=== PATIENT | male | born 1960 | race Caucasian/White ===

== ENCOUNTER → 2021-01-13 | Outpatient (CLI) | payer MEDICARE, MEDICAID ==
[~2021-01-13] MED LIST: BARIUM SUSPENSION 2.1% (VANILLA SILQ) 450 ML PO ONE; CATHETER FLUSH 10 ML SYR IV PRN; HOLD METFORMIN - RECEIVED CONTRAST 20 ML VIAL IV SCH; IOHEXOL 350 MG/ML 100 ML (OMNIPAQUE 350) VIAL IV ONE; NS 100 ML (IVPB) BAG IV ONE
--- NOTE | 2021-01-13 11:32 | Diagnostic Imaging Report ---
PROCEDURE: CT chest with contrast, CT abdomen and pelvis with and without contrast. TECHNIQUE: Pre and post intravenous contrast axial imaging of the abdomen and pelvis and post contrast axial imaging of the chest were performed. Auto Exposure Controls were utilized during the CT exam to meet ALARA standards for radiation dose reduction. INDICATION: Colon cancer. Recent colon surgery. No prior studies are available for comparison. CT CHEST: The lungs are clear. There is no effusion or pneumothorax. There is a 14 x 19 mm right paratracheal lymph node present which has a predominant fatty hilum with no suspicious mediastinal, hilar or axillary lymphadenopathy seen. No bony lesions are seen. CT abdomen and pelvis: Liver, gallbladder and bile ducts are normal. The spleen, pancreas and adrenals are normal. There is a 4 x 7 mm nonobstructing calculus in the right kidney. Left kidney is normal. The ureters and bladder are normal. There is diverticulosis of the colon. There is some induration around the cecum and ascending colon which may be related to the recent surgery. A focal mass is not seen. No obstruction or perforation is evident. There is no mesenteric or retroperitoneal adenopathy. There is no ascites. No suspicious bony lesions. IMPRESSION: CT of the chest, abdomen and pelvis shows no evidence of metastatic disease. Dictated by: Dictated on workstation # [id number]
== END ==
LOC: RAD 08:27
PROVIDERS: ATTEND Internal Medicine Hematology & Oncology
DX: C18.9 Malignant neoplasm of colon, unspecified (principal)
CPT/HCPCS: 71260; 74178

== ENCOUNTER 2021-02-01 05:48 | Outpatient (CLI) | payer MEDICARE, MEDICAID ==
[~2021-02-01] VITALS: Ht 170.2 cm; Wt 155.6 kg
[2021-02-01] MEDS ORDERED: NFCAPE500T PO ×2 (09:54)
[2021-02-01] MEDS ORDERED: SUCR1TAB PO ×2 (09:54)
[2021-02-01] MEDS ORDERED: ATOR40TA70 PO ×2 (09:54)
[2021-02-01] MEDS ORDERED: HYDR25TA4 PO ×2 (09:54)
[2021-02-01] MEDS ORDERED: LISI40TA9 PO ×2 (09:54)
[2021-02-01] MEDS ORDERED: RT-ALBUINH IH ×2 (09:54)
[2021-02-01] MEDS ORDERED: PANT40TA52 PO ×2 (09:54)
[2021-02-01] MEDS ORDERED: VENL150C98 PO ×2 (09:54)
[2021-02-01] MEDS ORDERED: IPRA3AMP31 IH ×2 (09:54)
[2021-02-01] MEDS ORDERED: LEVO25CA4 PO ×2 (09:54)
[2021-02-02] MEDS ORDERED: ACHYD1T PO ×2 (10:23)
== END 2021-02-01 10:09 | disposition home or self-care (01) ==
LOC: PREOP 05:48
PROVIDERS: ATTEND Surgery
DX: Z01.818 Encounter for other preprocedural examination (principal)

== ENCOUNTER 2021-02-02 07:28 | Day surgery (SDC) | payer MEDICARE, MEDICAID ==
[2021-02-02] VITALS (7 sets, daily range): BP systolic 118–140; BP diastolic 60–68
[~2021-02-02] VITALS: Ht 170.2 cm; Wt 155.6 kg
[~2021-02-02 07:28] MED LIST changes: +ATOR40TA70 PO; -BARIUM SUSPENSION 2.1% (VANILLA SILQ) 450 ML PO ONE; -CATHETER FLUSH 10 ML SYR IV PRN; -HOLD METFORMIN - RECEIVED CONTRAST 20 ML VIAL IV SCH; +HYDR25TA4 PO; -IOHEXOL 350 MG/ML 100 ML (OMNIPAQUE 350) VIAL IV ONE; +IPRA3AMP31 IH; +LEVO25CA4 PO; +LISI40TA9 PO; +NFCAPE500T PO; -NS 100 ML (IVPB) BAG IV ONE; +PANT40TA52 PO; +RT-ALBUINH IH; +SUCR1TAB PO; +VENL150C98 PO
[2021-02-02] MEDS ORDERED: ceFAZolin INJECTION 3,000 MG in NS (IVPB) 100 ML IV ONE (08:15)
[2021-02-02] MEDS ORDERED: LACTATED RINGERS 1,000 ML IV PRN (08:15)
[2021-02-02] MEDS ORDERED: PROPOFOL INJECTION 50 ML IV ONE (09:19)
[2021-02-02] MEDS ORDERED: MIDAZOLAM 2 MG/2 ML (VERSED) VIAL ONE (09:19)
[2021-02-02] MEDS ORDERED: fentaNYL INJ 100 MCG/2 ML AMP ONE (09:19)
--- NOTE | 2021-02-02 09:19 | Progress Note-Pre Operative ---
Pre-Operative Progress Note H&P Reviewed The H&P was reviewed, patient examined and no changes noted. Time Seen by Provider: 09:17 Date H&P Reviewed: Feb 02, 2021 Time H&P Reviewed: 09:17 Pre-Operative Diagnosis: Colon CA, Venous insufficiency PROSPER GUZMAN DO Feb 02, 2021 09:19
[2021-02-02] MEDS ORDERED: LIDOCAINE/EPI 1%-1:200,000 (XYLOCAINE) 30 ML VIAL ONE (09:25)
[2021-02-02] MEDS ORDERED: HEParin (CENTRAL IV FLUSH) 500 UNIT/5 ML SYR ONE (09:25)
[2021-02-02] MEDS ORDERED: 0.9% SODIUM CHLORIDE PF INJ 20 ML VIAL ONE (09:25)
--- NOTE | 2021-02-02 10:22 | Progress Note-Post Operative ---
Post-Operative Progess Note Surgeon (s)/Manager Lan (s) Surgeon PROSPER GUZMAN DO Manager Lan: SIL Corey Pre-Operative Diagnosis Colon CA, Venous insufficiency Post-Operative Diagnosis same Procedure & Operative Findings Date of Procedure 02/02/21 Procedure Performed/Findings Darrell-Cath Placement PROCEDURE: The patient was taken to the operating suite, was prepped and draped in the sterile fashion. A surgical pause was performed. Local anesthetic was infiltrated at the clavicle and along the tract to the right anterior chest, where more local was placed so the pocket could be created. Using an 18 gauge finder needle with negative inspiration the right subclavian vein was accessed on the first attempt and dark nonpulsatile blood was withdrawn. The wire was inserted and fluoroscopy assured proper placement. The needle was removed. The regular wire was inserted and fluoroscopy assured proper placement. The wire was then secured. A #11 blade scalpel was used to make an incision over the right chest and along guidewire. Cautery was used to dissect down to the pectoral fascia. A pocket was created with blunt dissection. The dilator sheath was then advanced over the wire under fluoroscopy and the dilator and wire were removed. The Groshong catheter was inserted through the sheath and the sheath was then removed. The Groshong wire was removed. The catheter was then tunneled to the right chest pocket. Fluoroscopy was used to cut to length and this was then attached to the port which was then placed within the pocket. The port was then accessed without difficulty. It was then flushed with saline and then heparin. The subcutaneous tissues were then reapproximated using 3-0 Vicryl. Finally the skin was closed with 4-0 undyed monocryl, 3 interrupted sutures. The areas were then washed and dried. Skin Affix was placed over incision. The insertion point of the neck Skin Affix was placed over the incision. The patient tolerated the procedure well without complication and was taken to recovery room in stable condition. Anesthesia Type IV sedation by DEHYDRATING PRESS OPERATOR Estimated Blood Loss Estimated blood loss (mL): less than 5ml Specimens/Packing Specimens Removed PROSPER Thompson DO Feb 02, 2021 10:22
[2021-02-02] MEDS ORDERED: ACHYD1T PO ×2 (10:23)
--- NOTE | 2021-02-02 10:24 | Discharge Inst-Surgical ---
Discharge Inst-Surgical Depart Medication/Instructions New, Converted or Re-Newed RX: Transmitted to Pharmacy Patient Instructions Follow up Appt: Make appointment for 1 week. [phone] Instructions: No lifting greater than 20 pounds. No strenuous activity. May shower in 24 hours, no tub bath or soaking. Use incentive spirometer at home as directed. No Smoking Skin/Wound Care: May remove bandages in am. You need to leave the Dermabond on incision it will fall off on it's own. Symptoms to Report: Appetite Changes, Extremity Discoloration, Numbness/Tingling, Swelling Increased, Bleeding Excessive, Eyesight Changes, Pain Increased, Urine Color Change, Constipation(Persistent), Fever over 101 degree F, Pain/Pressure in chest, Urinating Difficulty, Cough Up/Vomit Blood, Heart Beat Irreg/Pounding, Pain/Pressure in jaw, Cramps in feet or legs, Lightheadedness, Pain/Pressure in shoulder, Diarrhea(Persistent), Memory Changes Suddenly, Questions/Concerns, Weight gain consecutive days, Dizziness/Fainting, Nausea/Vomiting, Shortness of Breath, Weight gain over 2 pounds If questions or concerns contact your physician Or seek help at emergency department. Activity Activity as Tolerated: Yes Activity Instructions: Avoid Stress to Incision Driving Instructions: No Driving/Refer to Dr. Hanks Discharge Diet: No Restrictions Diet After 24 Hours: Clear Liquid if Nauseous If Any Problems/Questions/Issu: Contact Your Physician, Go to Emergency Room Skin/Wound Care Infection Signs and Symptoms: Increased Redness, Foul Odor of Wound, Increased Drainage, Skin Itchy or Has a Rash, Increased Swelling, Temperature Above 101 F Bathing Instructions: Shower Stitches/[place]/Dermabond Dis: PROSPER Torres DO Feb 02, 2021 10:24
--- NOTE | 2021-02-02 10:33 | Anesthesia-General Post-Op ---
MAC Patient Condition Mental Status/LOC: Same as Preop Cardiovascular: Satisfactory Nausea/Vomiting: Absent Respiratory: Satisfactory Pain: Controlled Complications: Absent Post Op Complications Complications None Follow Up Care/Instructions Patient Instructions None needed. Anesthesiology Discharge Order Discharge Order Patient is doing well, no complaints, stable vital signs, no apparent adverse anesthesia problems. No complications reported per nursing. BRANNON MIRELES CRNA Feb 02, 2021 10:33
[2021-02-02] MEDS ORDERED: ONDANSETRON 4 MG/2 ML (SDV) Z0FRAN IVP PRN (10:45)
[2021-02-02] MEDS ORDERED: MEPERIDINE (DEMEROL) INJ 50 MG/ML IVP ONE (10:45)
[2021-02-02] MEDS ORDERED: morphine INJ 10 MG/ML 1ML (SYR OR VIAL) IVP ONE (10:45)
[2021-02-02] MEDS ORDERED: ceFAZolin 2 GM IV Premixed 0 ML ONE (12:43)
--- NOTE | 2021-02-02 14:02 | Diagnostic Imaging Report ---
INDICATION: Arthroscopy for Groshong catheter placement. FINDINGS: Fluoroscopy was provided in the OR during Groshong catheter placement. 5 seconds of fluoroscopic time was utilized. A single image was obtained demonstrating a right subclavian Groshong catheter. The tip is not visualized on this image. IMPRESSION: Fluoroscopy during Groshong catheter placement. Dictated by: Dictated on workstation # [id number]
== END 2021-02-02 11:56 | disposition home or self-care (01) ==
LOC: SDC 07:28
PROVIDERS: ATTEND Surgery
DX: C18.0 Malignant neoplasm of cecum (principal); I87.2 Venous insufficiency (chronic) (peripheral); I10 Essential (primary) hypertension; E78.00 Pure hypercholesterolemia, unspecified; E78.5 Hyperlipidemia, unspecified; J44.9 Chronic obstructive pulmonary disease, unspecified; M06.9 Rheumatoid arthritis, unspecified; G62.9 Polyneuropathy, unspecified; E07.9 Disorder of thyroid, unspecified; K21.9 Gastro-esophageal reflux disease without esophagitis; E66.01 Morbid (severe) obesity due to excess calories; Z68.43 Body mass index [BMI] 50.0-59.9, adult; Z79.890 Hormone replacement therapy; Z79.899 Other long term (current) drug therapy; Z87.891 Personal history of nicotine dependence; Z85.820 Personal history of malignant melanoma of skin; Z88.8 Allergy status to other drugs, medicaments and biological substances; Z11.2 Encounter for screening for other bacterial diseases
CPT/HCPCS: 36561; 76000; 87081; C1788

== ENCOUNTER → 2021-03-02 | Outpatient (CLI) | payer MEDICARE, MEDICAID ==
[~2021-03-02] MED LIST changes: +ACHYD1T PO; +IOHEXOL 300 MG/ML 50 ML (OMNIPAQUE 300) VIAL IV ONE
--- NOTE | 2021-03-02 11:34 | Diagnostic Imaging Report ---
INDICATION: Evaluate patient's chest wall port. The patient was brought to the procedure room and placed on the table in the supine position. The patient's port was already accessed; however, the needle did not appear to be appropriately positioned. An attempt was made to re-access the port; however, this was unsuccessful due to the deep nature of the port. A total of 37 seconds of fluoroscopic time was utilized. Right chest wall port appears to have the tip at the junction of the medial right subclavian vein and SVC. No interruption or kinking of the port tubing is seen. IMPRESSION: The port could not be adequately accessed due to its deep nature. Dictated by: Dictated on workstation # [id number]
== END ==
LOC: RAD 09:59
PROVIDERS: ATTEND Internal Medicine Hematology & Oncology
DX: C18.0 Malignant neoplasm of cecum (principal); Z95.9 Presence of cardiac and vascular implant and graft, unspecified
CPT/HCPCS: 36598

== ENCOUNTER 2021-03-03 06:06 | Outpatient (CLI) | payer MEDICARE, MEDICAID ==
[~2021-03-03] VITALS: Ht 170.2 cm; Wt 156.4 kg
[~2021-03-03 06:06] MED LIST changes: -IOHEXOL 300 MG/ML 50 ML (OMNIPAQUE 300) VIAL IV ONE
== END 2021-03-03 10:06 | disposition home or self-care (01) ==
LOC: PREOP 06:06
PROVIDERS: ATTEND Surgery
DX: Z01.818 Encounter for other preprocedural examination (principal)

== ENCOUNTER 2021-03-04 08:56 | Day surgery (SDC) | payer MEDICARE, MEDICAID ==
[~2021-03-04] VITALS: Ht 170.2 cm; Wt 156.4 kg
[2021-03-04 09:10] VITALS: BP 152/94
[2021-03-04] MEDS ORDERED: ceFAZolin 2 GM IV Premixed 50 ML IV ONE (09:15)
[2021-03-04] MEDS ORDERED: LACTATED RINGERS 1,000 ML IV PRN (09:15)
[2021-03-04] MEDS ORDERED: 0.9% SODIUM CHLORIDE PF INJ 20 ML VIAL ONE (10:23)
[2021-03-04] MEDS ORDERED: HEParin (CENTRAL IV FLUSH) 500 UNIT/5 ML SYR ONE (10:23)
[2021-03-04] MEDS ORDERED: LIDOCAINE/EPI 1%-1:100,000 (XYLOCAINE) 20ML ONE (10:23)
[2021-03-04] MEDS ORDERED: PROPOFOL INJECTION 0 ML IV ONE (11:08)
[2021-03-04] MEDS ORDERED: MIDAZOLAM 2 MG/2 ML (VERSED) VIAL ONE (11:08)
[2021-03-04] MEDS ORDERED: IOHEXOL 300 MG/ML 50 ML (OMNIPAQUE 300) VIAL IV ONE (12:15)
[2021-03-04] MEDS ORDERED: ALTEPLASE 2 MG (CATHFLO) ONE (12:25)
[2021-03-04] MEDS ORDERED: WATER (STERILE) FOR INJECTION 10 ML ONE (12:29)
[2021-03-04] MEDS ORDERED: ALTEPLASE 2 MG (CATHFLO) IV ONE (12:30)
--- NOTE | 2021-03-04 12:36 | Diagnostic Imaging Report ---
Fluoroscopy. Indication: Check Groshong catheter patency Fluoroscopic assistance was provided for Dr. Matthew during his port patency procedure. 9.2 seconds of fluoroscopy time was utilized. 3 spot films of the right upper thorax were obtained. There is a Port-A-Cath in place. Impression: Fluoroscopic assistance was provided for Dr. Matthew.. Dictated by: Dictated on workstation # [id number]
[2021-03-04 13:17] VITALS: BP 152/94
== END 2021-03-04 13:17 | disposition home or self-care (01) ==
LOC: SDC 08:56
PROVIDERS: ATTEND Surgery
DX: Z45.2 Encounter for adjustment and management of vascular access device (principal); Z53.8 Procedure and treatment not carried out for other reasons
CPT/HCPCS: 36598; 87081

== ENCOUNTER 2021-03-30 12:12 | Outpatient (RCR) | payer MEDICARE, MEDICAID ==
[2020-12-31 11:17] LABS: BASOPHILS % (AUTO) 1 % (0-10); EOSINOPHILS # (AUTO) 0.3 10^3/uL (0.0-0.3); EOSINOPHILS % (AUTO) 6 % (0-10); HEMATOCRIT 35 % (40-54); HEMOGLOBIN 10.8 g/dL (13.3-17.7); LYMPHOCYTES # (AUTO) 1.6 10^3/uL (1.0-4.0); LYMPHOCYTES % (AUTO) 26 % (12-44); MEAN CORPUSCULAR HEMOGLOBIN 27 pg (25-34); MEAN CORPUSCULAR HGB CONC 31 g/dL (32-36); MEAN CORPUSCULAR VOLUME 85 fL (80-99); MEAN PLATELET VOLUME 9.8 fL (9.0-12.2); MONOCYTES # (AUTO) 0.6 10^3/uL (0.0-1.0); MONOCYTES % (AUTO) 9 % (0-12); NEUTROPHILS # (AUTO) 3.5 10^3/uL (1.8-7.8); NEUTROPHILS % (AUTO) 58 % (42-75); PLATELET COUNT 399 10^3/uL (130-400); WHITE BLOOD COUNT 6.1 10^3/uL (4.3-11.0)
[2020-12-31 11:26] LABS: BILIRUBIN,TOTAL 0.4 MG/DL (0.1-1.0); CALCIUM 8.6 MG/DL (8.5-10.1); CREATININE SERUM 1.02 MG/DL (0.60-1.30); POTASSIUM 3.7 MMOL/L (3.6-5.0); TOTAL PROTEIN 6.3 GM/DL (6.4-8.2)
[2021-02-09 13:17] LABS: BASOPHILS % (AUTO) 1 % (0-10); EOSINOPHILS # (AUTO) 0.2 10^3/uL (0.0-0.3); EOSINOPHILS % (AUTO) 3 % (0-10); HEMATOCRIT 35 % (40-54); HEMOGLOBIN 11.3 g/dL (13.3-17.7); LYMPHOCYTES # (AUTO) 1.6 10^3/uL (1.0-4.0); LYMPHOCYTES % (AUTO) 30 % (12-44); MEAN CORPUSCULAR HEMOGLOBIN 27 pg (25-34); MEAN CORPUSCULAR HGB CONC 32 g/dL (32-36); MEAN CORPUSCULAR VOLUME 86 fL (80-99); MEAN PLATELET VOLUME 10.1 fL (9.0-12.2); MONOCYTES # (AUTO) 0.6 10^3/uL (0.0-1.0); MONOCYTES % (AUTO) 11 % (0-12); NEUTROPHILS # (AUTO) 2.9 10^3/uL (1.8-7.8); NEUTROPHILS % (AUTO) 54 % (42-75); PLATELET COUNT 235 10^3/uL (130-400); WHITE BLOOD COUNT 5.3 10^3/uL (4.3-11.0)
[2021-02-09 13:37] LABS: ALBUMIN 3.4 GM/DL (3.2-4.5); BILIRUBIN,TOTAL 0.4 MG/DL (0.1-1.0); CALCIUM 9.1 MG/DL (8.5-10.1); CREATININE SERUM 1.01 MG/DL (0.60-1.30); POTASSIUM 3.4 MMOL/L (3.6-5.0); TOTAL PROTEIN 6.3 GM/DL (6.4-8.2)
[2021-02-16 12:45] LABS: BASOPHILS % (AUTO) 1 % (0-10); EOSINOPHILS # (AUTO) 0.3 10^3/uL (0.0-0.3); EOSINOPHILS % (AUTO) 4 % (0-10); HEMATOCRIT 38 % (40-54); LYMPHOCYTES # (AUTO) 2.3 10^3/uL (1.0-4.0); LYMPHOCYTES % (AUTO) 36 % (12-44); MEAN CORPUSCULAR HEMOGLOBIN 28 pg (25-34); MEAN CORPUSCULAR HGB CONC 32 g/dL (32-36); MEAN CORPUSCULAR VOLUME 87 fL (80-99); MEAN PLATELET VOLUME 10.5 fL (9.0-12.2); MONOCYTES # (AUTO) 0.6 10^3/uL (0.0-1.0); MONOCYTES % (AUTO) 9 % (0-12); NEUTROPHILS # (AUTO) 3.3 10^3/uL (1.8-7.8); NEUTROPHILS % (AUTO) 50 % (42-75); PLATELET COUNT 211 10^3/uL (130-400); WHITE BLOOD COUNT 6.5 10^3/uL (4.3-11.0)
[2021-02-16 13:01] LABS: CALCIUM 8.8 MG/DL (8.5-10.1); CREATININE SERUM 1.02 MG/DL (0.60-1.30); POTASSIUM 3.5 MMOL/L (3.6-5.0)
[2021-02-23 12:59] LABS: BASOPHILS % (AUTO) 1 % (0-10); EOSINOPHILS # (AUTO) 0.2 10^3/uL (0.0-0.3); EOSINOPHILS % (AUTO) 3 % (0-10); HEMATOCRIT 39 % (40-54); HEMOGLOBIN 12.4 g/dL (13.3-17.7); LYMPHOCYTES # (AUTO) 2.6 10^3/uL (1.0-4.0); LYMPHOCYTES % (AUTO) 36 % (12-44); MEAN CORPUSCULAR HEMOGLOBIN 28 pg (25-34); MEAN CORPUSCULAR HGB CONC 32 g/dL (32-36); MEAN CORPUSCULAR VOLUME 88 fL (80-99); MEAN PLATELET VOLUME 10.2 fL (9.0-12.2); MONOCYTES # (AUTO) 0.7 10^3/uL (0.0-1.0); MONOCYTES % (AUTO) 10 % (0-12); NEUTROPHILS # (AUTO) 3.6 10^3/uL (1.8-7.8); NEUTROPHILS % (AUTO) 50 % (42-75); PLATELET COUNT 238 10^3/uL (130-400); WHITE BLOOD COUNT 7.1 10^3/uL (4.3-11.0)
[2021-02-23 13:13] LABS: CALCIUM 9.4 MG/DL (8.5-10.1); CREATININE SERUM 1.12 MG/DL (0.60-1.30); POTASSIUM 3.6 MMOL/L (3.6-5.0)
[2021-03-09 12:44] LABS: BASOPHILS % (AUTO) 1 % (0-10); EOSINOPHILS # (AUTO) 0.2 10^3/uL (0.0-0.3); EOSINOPHILS % (AUTO) 3 % (0-10); HEMATOCRIT 35 % (40-54); HEMOGLOBIN 11.3 g/dL (13.3-17.7); LYMPHOCYTES # (AUTO) 1.9 10^3/uL (1.0-4.0); LYMPHOCYTES % (AUTO) 38 % (12-44); MEAN CORPUSCULAR HEMOGLOBIN 29 pg (25-34); MEAN CORPUSCULAR HGB CONC 33 g/dL (32-36); MEAN CORPUSCULAR VOLUME 89 fL (80-99); MEAN PLATELET VOLUME 9.8 fL (9.0-12.2); MONOCYTES # (AUTO) 0.6 10^3/uL (0.0-1.0); MONOCYTES % (AUTO) 12 % (0-12); NEUTROPHILS # (AUTO) 2.4 10^3/uL (1.8-7.8); NEUTROPHILS % (AUTO) 46 % (42-75); PLATELET COUNT 141 10^3/uL (130-400); WHITE BLOOD COUNT 5.1 10^3/uL (4.3-11.0)
[2021-03-09 13:06] LABS: ALBUMIN 3.4 GM/DL (3.2-4.5); BILIRUBIN,TOTAL 0.8 MG/DL (0.1-1.0); CALCIUM 8.5 MG/DL (8.5-10.1); CREATININE SERUM 1.02 MG/DL (0.60-1.30); POTASSIUM 3.8 MMOL/L (3.6-5.0)
[2021-03-16 13:37] LABS: BASOPHILS % (AUTO) 0 % (0-10); EOSINOPHILS # (AUTO) 0.3 10^3/uL (0.0-0.3); EOSINOPHILS % (AUTO) 4 % (0-10); HEMATOCRIT 39 % (40-54); HEMOGLOBIN 12.9 g/dL (13.3-17.7); LYMPHOCYTES # (AUTO) 2.6 10^3/uL (1.0-4.0); LYMPHOCYTES % (AUTO) 38 % (12-44); MEAN CORPUSCULAR HEMOGLOBIN 29 pg (25-34); MEAN CORPUSCULAR HGB CONC 33 g/dL (32-36); MEAN CORPUSCULAR VOLUME 88 fL (80-99); MEAN PLATELET VOLUME 10.5 fL (9.0-12.2); MONOCYTES # (AUTO) 0.8 10^3/uL (0.0-1.0); MONOCYTES % (AUTO) 11 % (0-12); NEUTROPHILS # (AUTO) 3.2 10^3/uL (1.8-7.8); NEUTROPHILS % (AUTO) 47 % (42-75); PLATELET COUNT 195 10^3/uL (130-400); WHITE BLOOD COUNT 6.9 10^3/uL (4.3-11.0)
[2021-03-16 14:06] LABS: CALCIUM 9.2 MG/DL (8.5-10.1); CREATININE SERUM 1.08 MG/DL (0.60-1.30); POTASSIUM 3.4 MMOL/L (3.6-5.0)
[2021-03-23 11:08] LABS: BASOPHILS % (AUTO) 1 % (0-10); EOSINOPHILS # (AUTO) 0.2 10^3/uL (0.0-0.3); EOSINOPHILS % (AUTO) 3 % (0-10); HEMATOCRIT 38 % (40-54); HEMOGLOBIN 12.6 g/dL (13.3-17.7); LYMPHOCYTES # (AUTO) 2.2 10^3/uL (1.0-4.0); LYMPHOCYTES % (AUTO) 40 % (12-44); MEAN CORPUSCULAR HEMOGLOBIN 30 pg (25-34); MEAN CORPUSCULAR HGB CONC 33 g/dL (32-36); MEAN CORPUSCULAR VOLUME 90 fL (80-99); MONOCYTES # (AUTO) 0.7 10^3/uL (0.0-1.0); MONOCYTES % (AUTO) 13 % (0-12); NEUTROPHILS # (AUTO) 2.4 10^3/uL (1.8-7.8); NEUTROPHILS % (AUTO) 43 % (42-75); PLATELET COUNT 180 10^3/uL (130-400); WHITE BLOOD COUNT 5.4 10^3/uL (4.3-11.0)
[2021-03-23 11:25] LABS: CALCIUM 9.2 MG/DL (8.5-10.1); CREATININE SERUM 1.09 MG/DL (0.60-1.30); POTASSIUM 3.3 MMOL/L (3.6-5.0)
[~2021-03-30] VITALS: Ht 170.2 cm; Wt 155.1 kg
[~2021-03-30 12:12] MED LIST changes: +D5W 500 ML IV (CANCER CTR) 500 ML IV SCH; +D5W IV SCH; +FAMOTIDINE 20MG/2ML IV (CANCER CTR) IV SCH; +FOSAPREPITANT (CANCER CENTER) 150 MG in NS (IVPB) CANCER CENTER ONLY 150 ML IV SCH; +OXALIPLATIN IV SCH
[2021-03-30 13:06] LABS: BASOPHILS % (AUTO) 1 % (0-10); EOSINOPHILS # (AUTO) 0.1 10^3/uL (0.0-0.3); EOSINOPHILS % (AUTO) 3 % (0-10); HEMATOCRIT 37 % (40-54); HEMOGLOBIN 12.7 g/dL (13.3-17.7); LYMPHOCYTES # (AUTO) 1.8 10^3/uL (1.0-4.0); LYMPHOCYTES % (AUTO) 39 % (12-44); MEAN CORPUSCULAR HEMOGLOBIN 31 pg (25-34); MEAN CORPUSCULAR HGB CONC 34 g/dL (32-36); MEAN CORPUSCULAR VOLUME 90 fL (80-99); MEAN PLATELET VOLUME 10.2 fL (9.0-12.2); MONOCYTES # (AUTO) 0.6 10^3/uL (0.0-1.0); MONOCYTES % (AUTO) 14 % (0-12); NEUTROPHILS % (AUTO) 44 % (42-75); PLATELET COUNT 158 10^3/uL (130-400); WHITE BLOOD COUNT 4.6 10^3/uL (4.3-11.0)
[2021-03-30 13:26] LABS: ALBUMIN 3.7 GM/DL (3.2-4.5); BILIRUBIN,TOTAL 0.5 MG/DL (0.1-1.0); CALCIUM 9.2 MG/DL (8.5-10.1); CREATININE SERUM 1.02 MG/DL (0.60-1.30); POTASSIUM 3.2 MMOL/L (3.6-5.0); TOTAL PROTEIN 6.8 GM/DL (6.4-8.2)
== END 2021-03-31 | disposition home or self-care (01) ==
LOC: ONC 12:12
PROVIDERS: ATTEND Internal Medicine Hematology & Oncology
DX: Z51.11 Encounter for antineoplastic chemotherapy (principal); C18.9 Malignant neoplasm of colon, unspecified; D50.0 Iron deficiency anemia secondary to blood loss (chronic); E66.9 Obesity, unspecified
CPT/HCPCS: 80053; 82378; 82728; 83540; 83550; 85025; G0463; 36591; 80048; 96367; 96368; 96375; 96413; 96415; 99213; 99214

== ENCOUNTER 2021-05-18 11:45 | Outpatient (RCR) | payer MEDICARE, MEDICAID ==
[2021-04-06 10:09] LABS: BASOPHILS % (AUTO) 1 % (0-10); EOSINOPHILS # (AUTO) 0.2 10^3/uL (0.0-0.3); EOSINOPHILS % (AUTO) 3 % (0-10); HEMATOCRIT 39 % (40-54); HEMOGLOBIN 13.2 g/dL (13.3-17.7); LYMPHOCYTES # (AUTO) 2.3 10^3/uL (1.0-4.0); LYMPHOCYTES % (AUTO) 41 % (12-44); MEAN CORPUSCULAR HEMOGLOBIN 31 pg (25-34); MEAN CORPUSCULAR HGB CONC 34 g/dL (32-36); MEAN CORPUSCULAR VOLUME 90 fL (80-99); MEAN PLATELET VOLUME 10.5 fL (9.0-12.2); MONOCYTES # (AUTO) 0.6 10^3/uL (0.0-1.0); MONOCYTES % (AUTO) 11 % (0-12); NEUTROPHILS # (AUTO) 2.4 10^3/uL (1.8-7.8); NEUTROPHILS % (AUTO) 44 % (42-75); PLATELET COUNT 135 10^3/uL (130-400); WHITE BLOOD COUNT 5.5 10^3/uL (4.3-11.0)
[2021-04-06 10:24] LABS: CALCIUM 8.9 MG/DL (8.5-10.1); CREATININE SERUM 1.11 MG/DL (0.60-1.30); POTASSIUM 3.3 MMOL/L (3.6-5.0)
[2021-04-13 10:27] LABS: BASOPHILS % (AUTO) 0 % (0-10); EOSINOPHILS # (AUTO) 0.1 10^3/uL (0.0-0.3); EOSINOPHILS % (AUTO) 3 % (0-10); HEMATOCRIT 35 % (40-54); HEMOGLOBIN 12.3 g/dL (13.3-17.7); LYMPHOCYTES # (AUTO) 2.2 10^3/uL (1.0-4.0); LYMPHOCYTES % (AUTO) 47 % (12-44); MEAN CORPUSCULAR HEMOGLOBIN 32 pg (25-34); MEAN CORPUSCULAR HGB CONC 35 g/dL (32-36); MEAN CORPUSCULAR VOLUME 91 fL (80-99); MEAN PLATELET VOLUME 10.1 fL (9.0-12.2); MONOCYTES # (AUTO) 0.5 10^3/uL (0.0-1.0); MONOCYTES % (AUTO) 11 % (0-12); NEUTROPHILS # (AUTO) 1.8 10^3/uL (1.8-7.8); NEUTROPHILS % (AUTO) 39 % (42-75); PLATELET COUNT 141 10^3/uL (130-400); WHITE BLOOD COUNT 4.6 10^3/uL (4.3-11.0)
[2021-04-13 10:45] LABS: CALCIUM 8.7 MG/DL (8.5-10.1); CREATININE SERUM 0.91 MG/DL (0.60-1.30); POTASSIUM 3.5 MMOL/L (3.6-5.0)
[2021-04-20 12:52] LABS: BASOPHILS % (AUTO) 0 % (0-10); EOSINOPHILS # (AUTO) 0.1 10^3/uL (0.0-0.3); EOSINOPHILS % (AUTO) 2 % (0-10); HEMATOCRIT 38 % (40-54); LYMPHOCYTES # (AUTO) 2.1 10^3/uL (1.0-4.0); LYMPHOCYTES % (AUTO) 36 % (12-44); MEAN CORPUSCULAR HEMOGLOBIN 32 pg (25-34); MEAN CORPUSCULAR HGB CONC 34 g/dL (32-36); MEAN CORPUSCULAR VOLUME 92 fL (80-99); MEAN PLATELET VOLUME 10.5 fL (9.0-12.2); MONOCYTES # (AUTO) 0.9 10^3/uL (0.0-1.0); MONOCYTES % (AUTO) 16 % (0-12); NEUTROPHILS # (AUTO) 2.7 10^3/uL (1.8-7.8); NEUTROPHILS % (AUTO) 46 % (42-75); PLATELET COUNT 170 10^3/uL (130-400); WHITE BLOOD COUNT 5.9 10^3/uL (4.3-11.0)
[2021-04-20 13:13] LABS: ALBUMIN 3.6 GM/DL (3.2-4.5); BILIRUBIN,TOTAL 0.7 MG/DL (0.1-1.0); CALCIUM 9.1 MG/DL (8.5-10.1); TOTAL PROTEIN 6.7 GM/DL (6.4-8.2)
[2021-04-27 10:22] LABS: EOSINOPHILS # (AUTO) 0.2 10^3/uL (0.0-0.3); HEMATOCRIT 39 % (40-54)
[2021-04-27 10:23] LABS: BASOPHILS % (AUTO) 0 % (0-10); EOSINOPHILS % (AUTO) 3 % (0-10); HEMOGLOBIN 13.5 g/dL (13.3-17.7); LYMPHOCYTES # (AUTO) 2.2 10^3/uL (1.0-4.0); LYMPHOCYTES % (AUTO) 38 % (12-44); MEAN CORPUSCULAR HEMOGLOBIN 33 pg (25-34); MEAN CORPUSCULAR HGB CONC 35 g/dL (32-36); MEAN CORPUSCULAR VOLUME 94 fL (80-99); MEAN PLATELET VOLUME 10.3 fL (9.0-12.2); MONOCYTES # (AUTO) 0.9 10^3/uL (0.0-1.0); MONOCYTES % (AUTO) 15 % (0-12); NEUTROPHILS # (AUTO) 2.5 10^3/uL (1.8-7.8); NEUTROPHILS % (AUTO) 44 % (42-75); PLATELET COUNT 118 10^3/uL (130-400); WHITE BLOOD COUNT 5.9 10^3/uL (4.3-11.0)
[2021-04-27 10:41] LABS: CALCIUM 9.3 MG/DL (8.5-10.1); CREATININE SERUM 1.11 MG/DL (0.60-1.30); POTASSIUM 3.4 MMOL/L (3.6-5.0)
[2021-05-04 11:36] LABS: BASOPHILS % (AUTO) 1 % (0-10); EOSINOPHILS # (AUTO) 0.1 10^3/uL (0.0-0.3); EOSINOPHILS % (AUTO) 3 % (0-10); HEMATOCRIT 37 % (40-54); HEMOGLOBIN 12.8 g/dL (13.3-17.7); LYMPHOCYTES # (AUTO) 1.9 10^3/uL (1.0-4.0); LYMPHOCYTES % (AUTO) 41 % (12-44); MEAN CORPUSCULAR HEMOGLOBIN 32 pg (25-34); MEAN CORPUSCULAR HGB CONC 35 g/dL (32-36); MEAN CORPUSCULAR VOLUME 93 fL (80-99); MEAN PLATELET VOLUME 10.5 fL (9.0-12.2); MONOCYTES # (AUTO) 0.6 10^3/uL (0.0-1.0); MONOCYTES % (AUTO) 13 % (0-12); NEUTROPHILS % (AUTO) 43 % (42-75); PLATELET COUNT 144 10^3/uL (130-400); WHITE BLOOD COUNT 4.6 10^3/uL (4.3-11.0)
[2021-05-04 11:52] LABS: CALCIUM 8.9 MG/DL (8.5-10.1)
[2021-05-12 11:13] LABS: EOSINOPHILS # (AUTO) 0.1 10^3/uL (0.0-0.3); EOSINOPHILS % (AUTO) 2 % (0-10); LYMPHOCYTES # (AUTO) 1.7 10^3/uL (1.0-4.0)
[2021-05-12 11:15] LABS: BASOPHILS % (AUTO) 0 % (0-10); HEMATOCRIT 36 % (40-54); HEMOGLOBIN 12.3 g/dL (13.3-17.7); LYMPHOCYTES % (AUTO) 37 % (12-44); MEAN CORPUSCULAR HEMOGLOBIN 33 pg (25-34); MEAN CORPUSCULAR HGB CONC 34 g/dL (32-36); MEAN CORPUSCULAR VOLUME 96 fL (80-99); MEAN PLATELET VOLUME 10.1 fL (9.0-12.2); MONOCYTES # (AUTO) 0.6 10^3/uL (0.0-1.0); MONOCYTES % (AUTO) 13 % (0-12); NEUTROPHILS # (AUTO) 2.2 10^3/uL (1.8-7.8); NEUTROPHILS % (AUTO) 47 % (42-75); PLATELET COUNT 134 10^3/uL (130-400); WHITE BLOOD COUNT 4.6 10^3/uL (4.3-11.0)
[2021-05-12 11:39] LABS: ALBUMIN 3.4 GM/DL (3.2-4.5); BILIRUBIN,TOTAL 0.8 MG/DL (0.1-1.0); CALCIUM 8.8 MG/DL (8.5-10.1); CREATININE SERUM 0.94 MG/DL (0.60-1.30); POTASSIUM 3.4 MMOL/L (3.6-5.0); TOTAL PROTEIN 6.2 GM/DL (6.4-8.2)
[2021-05-18 11:57] LABS: HEMOGLOBIN 12.1 g/dL (13.3-17.7)
[2021-05-18 11:58] LABS: BASOPHILS % (AUTO) 0 % (0-10); EOSINOPHILS # (AUTO) 0.2 10^3/uL (0.0-0.3); EOSINOPHILS % (AUTO) 4 % (0-10); HEMATOCRIT 35 % (40-54); LYMPHOCYTES # (AUTO) 1.9 10^3/uL (1.0-4.0); LYMPHOCYTES % (AUTO) 33 % (12-44); MEAN CORPUSCULAR HEMOGLOBIN 34 pg (25-34); MEAN CORPUSCULAR HGB CONC 35 g/dL (32-36); MEAN CORPUSCULAR VOLUME 97 fL (80-99); MEAN PLATELET VOLUME 10.7 fL (9.0-12.2); MONOCYTES # (AUTO) 0.6 10^3/uL (0.0-1.0); MONOCYTES % (AUTO) 11 % (0-12); NEUTROPHILS # (AUTO) 2.9 10^3/uL (1.8-7.8); NEUTROPHILS % (AUTO) 51 % (42-75); PLATELET COUNT 89 10^3/uL (130-400); WHITE BLOOD COUNT 5.7 10^3/uL (4.3-11.0)
[2021-05-18 12:10] LABS: CALCIUM 8.6 MG/DL (8.5-10.1); CREATININE SERUM 0.9 MG/DL (0.60-1.30); POTASSIUM 3.5 MMOL/L (3.6-5.0)
[2021-05-25 11:28] LABS: BASOPHILS % (AUTO) 0 % (0-10); EOSINOPHILS # (AUTO) 0.2 10^3/uL (0.0-0.3); EOSINOPHILS % (AUTO) 4 % (0-10); HEMATOCRIT 35 % (40-54); HEMOGLOBIN 12.2 g/dL (13.3-17.7); LYMPHOCYTES # (AUTO) 1.8 10^3/uL (1.0-4.0); LYMPHOCYTES % (AUTO) 36 % (12-44); MEAN CORPUSCULAR HEMOGLOBIN 34 pg (25-34); MEAN CORPUSCULAR HGB CONC 35 g/dL (32-36); MEAN CORPUSCULAR VOLUME 97 fL (80-99); MEAN PLATELET VOLUME 10.8 fL (9.0-12.2); MONOCYTES # (AUTO) 0.7 10^3/uL (0.0-1.0); MONOCYTES % (AUTO) 15 % (0-12); NEUTROPHILS # (AUTO) 2.2 10^3/uL (1.8-7.8); NEUTROPHILS % (AUTO) 45 % (42-75); PLATELET COUNT 78 10^3/uL (130-400)
[2021-05-25 11:46] LABS: BILIRUBIN,TOTAL 0.7 MG/DL (0.1-1.0); CALCIUM 8.8 MG/DL (8.5-10.1); TOTAL PROTEIN 6.2 GM/DL (6.4-8.2)
[2021-05-25 12:03] LABS: ALBUMIN 3.4 GM/DL (3.2-4.5); CREATININE SERUM 0.87 MG/DL (0.60-1.30)
== END 2021-05-27 | disposition home or self-care (01) ==
LOC: ONC 11:45
PROVIDERS: ATTEND Internal Medicine Hematology & Oncology
DX: Z51.11 Encounter for antineoplastic chemotherapy (principal); C18.9 Malignant neoplasm of colon, unspecified; D50.0 Iron deficiency anemia secondary to blood loss (chronic); E66.01 Morbid (severe) obesity due to excess calories; I10 Essential (primary) hypertension; E78.00 Pure hypercholesterolemia, unspecified; Z98.890 Other specified postprocedural states
CPT/HCPCS: 36591; 80048; 80053; 82728; 83540; 83550; 85025; 96367; 96375; 96413; 96415; 99213

== ENCOUNTER 2021-06-01 10:20 | Outpatient (RCR) | payer MEDICARE, MEDICAID | END 2021-06-27 | disposition home or self-care (01) | LOC: ONC 10:20 | PROVIDERS: ATTEND Internal Medicine Hematology & Oncology | DX: C18.9 Malignant neoplasm of colon, unspecified (principal); D69.59 Other secondary thrombocytopenia; D50.0 Iron deficiency anemia secondary to blood loss (chronic); I10 Essential (primary) hypertension; E78.00 Pure hypercholesterolemia, unspecified; E66.01 Morbid (severe) obesity due to excess calories; Z98.890 Other specified postprocedural states | CPT/HCPCS: 99213 ==

== ENCOUNTER → 2021-07-11 | Outpatient (CLI) | payer MEDICAID, MEDICARE ==
[~2021-07-11] MED LIST changes: -D5W 500 ML IV (CANCER CTR) 500 ML IV SCH; -D5W IV SCH; -FAMOTIDINE 20MG/2ML IV (CANCER CTR) IV SCH; -FOSAPREPITANT (CANCER CENTER) 150 MG in NS (IVPB) CANCER CENTER ONLY 150 ML IV SCH; +HOLD METFORMIN - RECEIVED CONTRAST 20 ML VIAL IV SCH; +IOHEXOL 350 MG/ML 100 ML (OMNIPAQUE 350) VIAL IV ONE; +NS 100 ML (IVPB) BAG IV ONE; -OXALIPLATIN IV SCH
--- NOTE | 2021-07-11 12:27 | Diagnostic Imaging Report ---
PROCEDURE: CT chest, abdomen, and pelvis with and without contrast. TECHNIQUE: Precontrast images were obtained of the chest, abdomen, and pelvis. Multiple contiguous axial images were obtained through the chest, abdomen, and pelvis after administration of intravenous contrast. Auto Exposure Controls were utilized during the CT exam to meet ALARA standards for radiation dose reduction. INDICATION: Colon cancer cecum. COMPARISON: 01/13/2021. FINDINGS: CHEST: No suspicious or dominant lung mass. There are no pathological-appearing thoracic lymph nodes. No effusion, pneumothorax, edema, or pneumonia. No acute finding or change. ABDOMEN/PELVIS: Some mild stranding of the right upper quadrant mesenteric fat has decreased in conspicuity, likely improvements in post operative scarring in this patient with previous partial right hemicolectomy. No evidence for obstruction or anastomotic leak. The residual colon shows no identifiable mass. No pathological appearing abdominopelvic mesenteric or retroperitoneal lymph nodes. The liver, gallbladder, bile ducts, spleen, adrenals, and pancreas are unremarkable. The unobstructed kidneys are normal. The aorta is nonaneurysmal. There is no acute or suspect osseous lesion. IMPRESSION: Likely decreased post operative changes in the right upper quadrant. No findings to suggest neoplastic recurrence or metastatic disease. Dictated by: Dictated on workstation # [id number]
== END ==
LOC: RAD 09:45
PROVIDERS: ATTEND Internal Medicine Hematology & Oncology
DX: C18.0 Malignant neoplasm of cecum (principal)
CPT/HCPCS: 71270; 74178

== ENCOUNTER → 2021-07-25 | Outpatient (RCR) | payer MEDICARE, MEDICAID ==
[2021-07-11 09:58] LABS: BASOPHILS % (AUTO) 1 % (0-10); EOSINOPHILS # (AUTO) 0.1 10^3/uL (0.0-0.3); EOSINOPHILS % (AUTO) 3 % (0-10); HEMATOCRIT 40 % (40-54); HEMOGLOBIN 13.4 g/dL (13.3-17.7); LYMPHOCYTES # (AUTO) 1.4 10^3/uL (1.0-4.0); LYMPHOCYTES % (AUTO) 34 % (12-44); MEAN CORPUSCULAR HEMOGLOBIN 33 pg (25-34); MEAN CORPUSCULAR HGB CONC 34 g/dL (32-36); MEAN CORPUSCULAR VOLUME 97 fL (80-99); MEAN PLATELET VOLUME 10.5 fL (9.0-12.2); MONOCYTES # (AUTO) 0.5 10^3/uL (0.0-1.0); MONOCYTES % (AUTO) 12 % (0-12); NEUTROPHILS # (AUTO) 2.1 10^3/uL (1.8-7.8); NEUTROPHILS % (AUTO) 51 % (42-75); PLATELET COUNT 108 10^3/uL (130-400); WHITE BLOOD COUNT 4.1 10^3/uL (4.3-11.0)
[2021-07-11 10:21] LABS: ALBUMIN 3.4 GM/DL (3.2-4.5); BILIRUBIN,TOTAL 0.8 MG/DL (0.1-1.0); CALCIUM 8.7 MG/DL (8.5-10.1); CREATININE SERUM 0.83 MG/DL (0.60-1.30); POTASSIUM 3.2 MMOL/L (3.6-5.0); TOTAL PROTEIN 6.5 GM/DL (6.4-8.2)
[~2021-07-25] MED LIST changes: -HOLD METFORMIN - RECEIVED CONTRAST 20 ML VIAL IV SCH; -IOHEXOL 350 MG/ML 100 ML (OMNIPAQUE 350) VIAL IV ONE; -NS 100 ML (IVPB) BAG IV ONE
== END | disposition home or self-care (01) ==
LOC: ONC 07-11 09:14
PROVIDERS: ATTEND Internal Medicine Hematology & Oncology
DX: Z45.2 Encounter for adjustment and management of vascular access device (principal); C18.9 Malignant neoplasm of colon, unspecified; D69.59 Other secondary thrombocytopenia; D50.0 Iron deficiency anemia secondary to blood loss (chronic); I10 Essential (primary) hypertension; E78.00 Pure hypercholesterolemia, unspecified; E66.01 Morbid (severe) obesity due to excess calories; Z98.890 Other specified postprocedural states
CPT/HCPCS: 36591; 80053; 82728; 83540; 83550; 85025; 99213

== ENCOUNTER 2021-08-24 12:20 | Outpatient (RCR) | payer MEDICARE, MEDICAID ==
[2021-08-24 13:22] LABS: BASOPHILS % (AUTO) 1 % (0-10); EOSINOPHILS # (AUTO) 0.1 10^3/uL (0.0-0.3); EOSINOPHILS % (AUTO) 3 % (0-10); HEMATOCRIT 40 % (40-54); HEMOGLOBIN 13.7 g/dL (13.3-17.7); LYMPHOCYTES # (AUTO) 1.6 10^3/uL (1.0-4.0); LYMPHOCYTES % (AUTO) 32 % (12-44); MEAN CORPUSCULAR HEMOGLOBIN 32 pg (25-34); MEAN CORPUSCULAR HGB CONC 34 g/dL (32-36); MEAN CORPUSCULAR VOLUME 92 fL (80-99); MEAN PLATELET VOLUME 9.9 fL (9.0-12.2); MONOCYTES # (AUTO) 0.5 10^3/uL (0.0-1.0); MONOCYTES % (AUTO) 11 % (0-12); NEUTROPHILS # (AUTO) 2.6 10^3/uL (1.8-7.8); NEUTROPHILS % (AUTO) 53 % (42-75); PLATELET COUNT 99 10^3/uL (130-400); WHITE BLOOD COUNT 4.9 10^3/uL (4.3-11.0)
[2021-08-24 13:41] LABS: ALBUMIN 3.7 GM/DL (3.2-4.5); BILIRUBIN,TOTAL 0.7 MG/DL (0.1-1.0); CALCIUM 8.9 MG/DL (8.5-10.1); CREATININE SERUM 0.92 MG/DL (0.60-1.30); POTASSIUM 3.7 MMOL/L (3.6-5.0); TOTAL PROTEIN 6.4 GM/DL (6.4-8.2)
== END 2021-08-25 ==
LOC: ONC 12:20
PROVIDERS: ATTEND Internal Medicine Hematology & Oncology
DX: Z45.2 Encounter for adjustment and management of vascular access device (principal); C18.9 Malignant neoplasm of colon, unspecified; D69.59 Other secondary thrombocytopenia; D50.0 Iron deficiency anemia secondary to blood loss (chronic); I10 Essential (primary) hypertension; E78.00 Pure hypercholesterolemia, unspecified; E66.01 Morbid (severe) obesity due to excess calories; Z98.890 Other specified postprocedural states
CPT/HCPCS: 80053; 82378; 85025; G0463; 36415; 99213

== ENCOUNTER 2021-12-07 07:43 | Outpatient (CLI) | payer MEDICARE, MEDICAID ==
[~2021-12-07] VITALS: Ht 170.2 cm; Wt 143.3 kg
[2021-12-07] MEDS ORDERED: MULT-141 PO (08:35)
== END 2021-12-07 08:38 | disposition home or self-care (01) ==
LOC: PREOP 07:43
PROVIDERS: ATTEND Surgery
DX: Z01.818 Encounter for other preprocedural examination (principal)

== ENCOUNTER 2022-01-23 10:14 | Outpatient (RCR) | payer MEDICARE, MEDICAID ==
[~2022-01-23 10:14] MED LIST changes: +MULT-141 PO
[2022-01-23 10:43] LABS: BASOPHILS % (AUTO) 1 % (0-10)
[2022-01-23 10:45] LABS: EOSINOPHILS # (AUTO) 0.1 10^3/uL (0.0-0.3); EOSINOPHILS % (AUTO) 2 % (0-10); HEMATOCRIT 41 % (40-54); HEMOGLOBIN 14.6 g/dL (13.3-17.7); LYMPHOCYTES # (AUTO) 1.7 10^3/uL (1.0-4.0); LYMPHOCYTES % (AUTO) 34 % (12-44); MEAN CORPUSCULAR HEMOGLOBIN 31 pg (25-34); MEAN CORPUSCULAR HGB CONC 36 g/dL (32-36); MEAN CORPUSCULAR VOLUME 88 fL (80-99); MEAN PLATELET VOLUME 10.4 fL (9.0-12.2); MONOCYTES # (AUTO) 0.4 10^3/uL (0.0-1.0); MONOCYTES % (AUTO) 8 % (0-12); NEUTROPHILS # (AUTO) 2.8 10^3/uL (1.8-7.8); NEUTROPHILS % (AUTO) 56 % (42-75); WHITE BLOOD COUNT 5.1 10^3/uL (4.3-11.0)
[2022-01-23 10:48] LABS: PLATELET COUNT 110 10^3/uL (130-400)
[2022-01-23 10:59] LABS: ALBUMIN 3.9 GM/DL (3.2-4.5); BILIRUBIN,TOTAL 0.7 MG/DL (0.1-1.0); CALCIUM 9.2 MG/DL (8.5-10.1); CREATININE SERUM 0.93 MG/DL (0.60-1.30); POTASSIUM 3.3 MMOL/L (3.6-5.0); TOTAL PROTEIN 6.9 GM/DL (6.4-8.2)
== END 2022-01-25 | disposition home or self-care (01) ==
LOC: ONC 10:14
PROVIDERS: ATTEND Internal Medicine Hematology & Oncology
DX: C18.9 Malignant neoplasm of colon, unspecified (principal); D69.59 Other secondary thrombocytopenia; D50.0 Iron deficiency anemia secondary to blood loss (chronic); I10 Essential (primary) hypertension; E78.00 Pure hypercholesterolemia, unspecified; E66.01 Morbid (severe) obesity due to excess calories; Z98.890 Other specified postprocedural states
CPT/HCPCS: 80053; 85025; G0463; 36415; 99213

== ENCOUNTER 2022-02-08 06:27 | Outpatient (CLI) | payer MEDICARE, MEDICAID ==
[~2022-02-08] VITALS: Ht 170.2 cm; Wt 138.8 kg
[2022-02-08] MEDS ORDERED: MULT-593 PO (11:31)
== END 2022-02-08 11:39 | disposition home or self-care (01) ==
LOC: PREOP 06:27
PROVIDERS: ATTEND Surgery
DX: Z01.818 Encounter for other preprocedural examination (principal)

== ENCOUNTER 2022-02-20 09:43 | Day surgery (SDC) | payer MEDICARE, MEDICAID ==
[~2022-02-20 09:43] MED LIST changes: +MULT-593 PO
[2022-02-20] MEDS ORDERED: LACTATED RINGERS 1,000 ML IV STA (09:59)
[2022-02-20 10:00] VITALS: BP 144/78
[2022-02-20] MEDS ORDERED: HURRICAINE EXT TUBE (BENZOCAINE) XX PRN (10:00)
== END 2022-02-20 10:25 | disposition home or self-care (01) ==
LOC: ENDO 09:43
PROVIDERS: ATTEND Surgery
DX: K29.70 Gastritis, unspecified, without bleeding (principal); Z85.038 Personal history of other malignant neoplasm of large intestine; Z53.29 Procedure and treatment not carried out because of patient's decision for other reasons

== ENCOUNTER 2022-02-22 05:32 | Outpatient (CLI) | payer MEDICARE, MEDICAID ==
[~2022-02-22] VITALS: Ht 170.1 cm; Wt 138.0 kg
[2022-02-22] MEDS ORDERED: PANT40TA52 PO (11:20)
== END 2022-02-22 11:26 ==
LOC: PREOP 05:32
PROVIDERS: ATTEND Surgery
DX: Z01.818 Encounter for other preprocedural examination (principal); I87.2 Venous insufficiency (chronic) (peripheral)

== ENCOUNTER 2022-02-27 11:48 | Day surgery (SDC) | payer MEDICARE, MEDICAID ==
[~2022-02-27] VITALS: Ht 170.1 cm; Wt 138.0 kg
[2022-02-27] VITALS (7 sets, daily range): BP systolic 100–163; BP diastolic 64–88
[2022-02-27] MEDS ORDERED: ceFAZolin INJECTION 1,000 MG VIAL IV ONE (12:00)
[2022-02-27] MEDS ORDERED: LACTATED RINGERS 1,000 ML IV PRN (12:00)
[2022-02-27] MEDS ORDERED: CEFAZOLIN IV ONE ×2 (12:45)
[2022-02-27] MEDS ORDERED: NS IV ONE ×2 (12:45)
[2022-02-27] MEDS ORDERED: PROPOFOL INJECTION 50 ML IV ONE (12:46)
[2022-02-27] MEDS ORDERED: fentaNYL INJ 100 MCG/2 ML AMP ONE (12:46)
[2022-02-27] MEDS ORDERED: MIDAZOLAM 2 MG/2 ML (VERSED) VIAL ONE (12:46)
[2022-02-27] MEDS ORDERED: LIDOCAINE/EPI 2% 1:200,00 (XYLOCAINE) 10 ML VIAL ONE (13:09)
--- NOTE | 2022-02-27 13:48 | Progress Note-Pre Operative ---
Pre-Operative Progress Note Date of Available H&P: Jan 31, 2022 Date H&P Reviewed: Feb 27, 2022 Time H&P Reviewed: 13:39 History & Physical: H&P Reviewed, Patient Examed, No changes noted Pre-Operative Diagnosis: Venous insufficiency, No longer needs port PROSPER GUZMAN DO Feb 27, 2022 13:48
[2022-02-27] MEDS ORDERED: LIDOCAINE/EPI 2% 1:200,00 (XYLOCAINE) 10 ML VIAL INJ ONE (14:00)
--- NOTE | 2022-02-27 14:16 | Progress Note-Post Operative ---
Post-Operative Progess Note Surgeon (s)/Tape Sewing Machine Operator (s) Surgeon PROSPER GUZMAN DO Tape Sewing Machine Operator: SIL Atkins Pre-Operative Diagnosis Venous insufficiency, No longer needs port Post-Operative Diagnosis same Procedure & Operative Findings Date of Procedure 02/27/22 Procedure Performed/Findings PROCEDURE: Removal of port COMPLICATIONS: None. INDICATIONS: The patient is a 61 year-old male who had a port previously placed. Patient is ok to have port removed. The patient was explained risk and benefits of the procedure and wished to proceed with procedure. Consent was signed on the chart. PROCEDURE: The patient was taken to the operating suite and was prepped and draped in sterile fashion. A surgical pause was performed. Local anesthetic was infiltrated to the area around the port. A #15 blade scalpel was used to make an incision right through previous incision. Cautery was used to dissect down to the port which was then grasped and then dissected around. The catheter was removed in its entirety. The port was then able to be dissected out of the pocket and elevated. The wound was then irrigated with copious amounts of irrigation. Hemostasis had been achieved. The subcutaneous tissues were then reapproximated using 3-0 Vicryl. Skin was then closed using 4-0 Vicryl in a running fashion. The area was then washed and dried and Skin Affix placed over the incision. The patient tolerated the procedure well without complication and was taken to recovery room in stable condition. Anesthesia Type IV sedation by Anesthesia Estimated Blood Loss Estimated blood loss (mL): scant Specimens/Packing Specimens Removed port, not sent to PROSPER Muñoz DO Feb 27, 2022 14:16
[2022-02-27] MEDS ORDERED: ACHD5005 PO (14:17)
--- NOTE | 2022-02-27 14:18 | Discharge Inst-Surgical ---
Discharge Inst-Surgical Depart Medication/Instructions New, Converted or Re-Newed RX: Transmitted to Pharmacy Patient Instructions Follow up Appt: Make appointment for 1 week. [phone] Instructions: No lifting greater than 20 pounds. No strenuous activity. May shower in 24 hours, no tub bath or soaking. Use incentive spirometer at home as directed. No Smoking Skin/Wound Care: May remove bandages in am. You need to leave the Dermabond on incision it will fall off on it's own. Symptoms to Report: Appetite Changes, Extremity Discoloration, Numbness/Tingling, Swelling Increased, Bleeding Excessive, Eyesight Changes, Pain Increased, Urine Color Change, Constipation(Persistent), Fever over 101 degree F, Pain/Pressure in chest, Urinating Difficulty, Cough Up/Vomit Blood, Heart Beat Irreg/Pounding, Pain/Pressure in jaw, Cramps in feet or legs, Lightheadedness, Pain/Pressure in shoulder, Diarrhea(Persistent), Memory Changes Suddenly, Questions/Concerns, Weight gain consecutive days, Dizziness/Fainting, Nausea/Vomiting, Shortness of Breath, Weight gain over 2 pounds If questions or concerns contact your physician Or seek help at emergency department. Activity Activity as Tolerated: Yes Activity Instructions: Avoid Stress to Incision Driving Instructions: No Driving/Refer to Dr. Hanks Discharge Diet: No Restrictions Diet After 24 Hours: Clear Liquid if Nauseous If Any Problems/Questions/Issu: Contact Your Physician, Go to Emergency Room Skin/Wound Care Infection Signs and Symptoms: Increased Redness, Foul Odor of Wound, Increased Drainage, Skin Itchy or Has a Rash, Increased Swelling, Temperature Above 101 F Bathing Instructions: Shower Stitches/[place]/Dermabond Dis: PROSPER Torres DO Feb 27, 2022 14:18
[2022-02-27] MEDS ORDERED: morphine INJ 10 MG/ML 1ML (SYR OR VIAL) IVP ONE (14:30)
[2022-02-27] MEDS ORDERED: ONDANSETRON 4 MG/2 ML (SDV) Z0FRAN IVP PRN (14:30)
--- NOTE | 2022-02-27 14:30 | Anesthesia-General Post-Op ---
MAC Patient Condition Mental Status/LOC: Same as Preop Cardiovascular: Satisfactory Nausea/Vomiting: Absent Respiratory: Satisfactory Pain: Controlled Complications: Absent Post Op Complications Complications None Follow Up Care/Instructions Patient Instructions None needed. Anesthesiology Discharge Order Discharge Order Patient is doing well in PACU, no complaints, stable vital signs, no apparent adverse anesthesia problems. No complications reported per nursing. PUSHPA KIRK DO Feb 27, 2022 14:30
== END 2022-02-27 15:12 | disposition home or self-care (01) ==
LOC: SDC 11:48
PROVIDERS: ATTEND Surgery
DX: I87.2 Venous insufficiency (chronic) (peripheral) (principal); E66.01 Morbid (severe) obesity due to excess calories; Z68.42 Body mass index [BMI] 45.0-49.9, adult; Z28.311 Partially vaccinated for COVID-19; Z87.891 Personal history of nicotine dependence; K29.50 Unspecified chronic gastritis without bleeding; Z85.038 Personal history of other malignant neoplasm of large intestine
CPT/HCPCS: 87081

== ENCOUNTER 2022-06-17 06:43 | Emergency (ER) | payer MEDICARE, MEDICAID ==
[~2022-06-17 06:43] MED LIST changes: +ACHD5005 PO; +ALBU8.5H6 IH; -RT-ALBUINH IH
[2022-06-17] MEDS ORDERED: ADENOSINE 6 MG/2 ML (ADENOCARD) VIAL IV ONE ×2 (06:50→07:00)
--- NOTE | 2022-06-17 07:00 | ED Cardiac General ---
History of Present Illness General Chief Complaint: Chest Pain Stated Complaint: CHEST PAIN Nursing Triage Note: TO ED VIA [facility] FROM HOME. PT WOKE UP APPROX 0500 WITH CP. HR 180s FOR EMS EN ROUTE. RATES CP 5/10 ON ARRIVAL TO ER. 324 ASA PO GIVEN EN ROUTE BY EMS. 20G IV TO LEFT HAND WITH NS INFUSING ON ARRIVAL TO ER THAT WAS STARTED EN ROUTE BY EMS. Source: patient, EMS Exam Limitations: no limitations History of Present Illness Date Seen by Provider: Jun 17, 2022 Time Seen by Provider: 06:45 Initial Comments Patient is a 62-year-old male who presents to the emergency department today with a chief complaint of "burning" chest pain radiating into his back and stoma ch, mild shortness of breath and palpitations. Patient states he woke up with symptoms at approximately 5 AM this morning. He presents by ambulance. IV fluids in place. Heart rate reported prior to arrival in the 180s. Blood pressure 100 systolic. Patient has not taken anything for the pain. He has never experienced anything like this before. He has a history of hypertension and colon cancer, cancer free as of November 28, 2021 for 1 year. He denies any recent illnesses such as fevers, cough, congestion. No problems with bowel or bladder other than the expected post colon cancer. No difficulty with urination. Last oral intake was last evening. He did have a sip of cold coffee this morning. He does not use excessive caffeine, he is not on any cold medications currently. No history of similar in the past All other review of systems reviewed and negative except as stated Timing/Duration: 1-3 hours Severity: moderate ("5") Location: central Activities at Onset: sleep NTG SL CYLINDRICAL MIXER: No ASA po CYLINDRICAL MIXER: Yes Associated Systoms: Chest Pain, Nausea/Vomiting, Shortness of Air Allergies and Home Medications Allergies Coded Allergies: diphenhydramine (Verified Allergy, Mild, PT. REPORTS AGRESSION , 02/22/22) Patient Home Medication List Home Medication List Reviewed: Yes Atorvastatin Calcium (Atorvastatin Calcium) 40 Mg Tablet, 40 MG PO DAILY, (Reported) Entered as Reported by: CIPRIANO KLEIN on 02/01/21 09 Hydrochlorothiazide (Hydrochlorothiazide) 25 Mg Tablet, 25 MG PO DAILY, (Reported) Entered as Reported by: CIPRIANO KLEIN on 02/01/21 0954 Hydrocodone Bit/Acetaminophen (HYDROcodone/APAP 5 MG/325 MG TAB) 1 Tab Tab, 1 TAB PO Q8H PRN for PAIN-MODERATE (5-7) Prescribed by: PROSPER GUZMAN on 02/27/22 1418 Levothyroxine Sodium (Levothyroxine) 25 Mcg Capsule, 25 MCG PO DAILY, (Reported) Entered as Reported by: CIPRIANO KLEIN on 02/01/21 0954 Lisinopril (Lisinopril) 40 Mg Tablet, 40 MG PO DAILY, (Reported) Entered as Reported by: CIPRIANO KLEIN on 02/01/21 09 Multivitamin with Minerals (Multiple Vitamin) 1 Each Tablet, 1 EACH PO DAILY, (Reported) Entered as Reported by: XAVI LAGOS on 02/08/22 1131 Pantoprazole Sodium (Pantoprazole Sodium) 40 Mg Tablet.dr, 40 MG PO DAILY, (Reported) Entered as Reported by: SYHANNE DUQUE on 02/22/22 1120 Sucralfate (Sucralfate) 1 Gm Tablet, 1 GM PO DAILY, (Reported) Entered as Reported by: CIPRIANO KLEIN on 02/01/21 0954 Venlafaxine HCl (Venlafaxine HCl ER) 150 Mg Cap.er.24h, 150 MG PO DAILY, (Reported) Entered as Reported by: CIPRIANO KLEIN on 02/01/21 09 Review of Systems Review of Systems Constitutional: see HPI EENTM: No Symptoms Reported Respiratory: Shortness of Air Cardiovascular: Chest Pain, Palpitations Gastrointestinal: No Symptoms Reported Genitourinary: No Symptoms Reported Musculoskeletal: no symptoms reported Skin: no symptoms reported Psychiatric/Neurological: No Symptoms Reported All Other Systems Reviewed Negative Unless Noted: Yes Past Dmazwfb-Xcqwtx-Nlssqd Hx Immunizations Up To Date First/Initial COVID19 Vaccinat: 08/29/20 Second COVID19 Vaccination Asa: 09/28/20 Third COVID19 Vaccination Date: NO Seasonal Allergies Seasonal Allergies: No Past Medical History Surgeries: Yes (colon surgery, back surgery,PORT) Abdominal, Orthopedic Respiratory: Yes Pneumonia, COPD Currently Using CPAP: No Currently Using BIPAP: No Cardiac: Yes (20+ YEARS AGO SAID 2 HEART ATTACKS R/T PNA NO TREATMENT) High Cholesterol, Hypertension Neurological: Yes Headaches /Migraines, Neuropathy Genitourinary: Yes Kidney Stones Gastrointestinal: Yes (COLON CA) Gastroesophageal Reflux, Ulcer Musculoskeletal: Yes (NEUROPATHY) Degenerate Disk Disease, Arthritis, Fibromyalgia, Rheumatoid Arthritis, Chronic Back Pain Endocrine: Yes Hypothyroidsim HEENT: Yes (WEARS GLASSES) Cataract Cancer: Yes (CURRENTLY COLON CANCER) Colon Did You Recieve Any Treatments: Yes What Type of Treatment Did You: Chemotherapy, Surgical Intervention Psychosocial: Yes Sleep Difficulties, Depression Integumentary: Yes (AFTER CHEMO LEGS SPOTS ITCHY) Blood Disorders: Yes (ANEMIA) Adverse Reaction/Blood Tranf: Yes (HAS HAD BLOOD WITH NO ISSUES) Physical Exam Vital Signs Vital Signs - First Documented 06/17/22 06:44 Pulse 181 Resp 22 B/P (MAP) 105/97 (100) Pulse Ox 99 O2 Delivery Room Air Capillary Refill : Less Than 3 Seconds Height, Weight, BMI Height: '" Weight: lbs. oz. 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 Norm as Tested Skin: Normal Color, Warm/Dry Procedures/Interventions Additional Procedures: cardioversion/defib Progress Patient chemically cardioverted with 6mf IV Adenosine; Successful x1; mandaeism NSR; improvement in pain and blood pressure Progress/Results/Core Measures Results/Orders Lab Results Laboratory Tests Test 06/17/22 06:49 Range/Units White Blood Count 8.4 4.3-11.0 10^3/uL Red Blood Count 4.60 4.30-5.52 10^6/uL Hemoglobin 14.2 13.3-17.7 g/dL Hematocrit 41 40-54 % Mean Corpuscular Volume 89 80-99 fL Mean Corpuscular Hemoglobin 31 25-34 pg Mean Corpuscular Hemoglobin Concent 35 32-36 g/dL Red Cell Distribution Width 12.4 10.0-14.5 % Platelet Count 157 130-400 10^3/uL Mean Platelet Volume 10.2 9.0-12.2 fL Immature Granulocyte % (Auto) 0 % Neutrophils (%) (Auto) 52 42-75 % Lymphocytes (%) (Auto) 38 12-44 % Monocytes (%) (Auto) 7 0-12 % Eosinophils (%) (Auto) 3 0-10 % Basophils (%) (Auto) 1 0-10 % Neutrophils # (Auto) 4.3 1.8-7.8 10^3/uL Lymphocytes # (Auto) 3.2 1.0-4.0 10^3/uL Monocytes # (Auto) 0.6 0.0-1.0 10^3/uL Eosinophils # (Auto) 0.3 0.0-0.3 10^3/uL Basophils # (Auto) 0.1 0.0-0.1 10^3/uL Immature Granulocyte # (Auto) 0.0 0.0-0.1 10^3/uL Sodium Level 139 135-145 MMOL/L Potassium Level 3.6 3.6-5.0 MMOL/L Chloride Level 108 H 98-107 MMOL/L Carbon Dioxide Level 19 L 21-32 MMOL/L Anion Gap 12 5-14 MMOL/L Blood Urea Nitrogen 23 H 7-18 MG/DL Creatinine 1.07 0.60-1.30 MG/DL Estimat Glomerular Filtration Rate 77 BUN/Creatinine Ratio 21 Glucose Level 137 H 70-105 MG/DL Calcium Level 9.1 8.5-10.1 MG/DL Magnesium Level 2.2 1.6-2.4 MG/DL Troponin I < 0.028 <0.028 NG/ML Thyroid Stimulating Hormone (TSH) 2.67 0.35-4.94 UIU/ML My Orders Orders - QUAN RIVERS MD Ekg Tracing (06/17/22 06:47) Adenosine Injection (Adenocard Injection (06/17/22 06:50) Ed Iv/Invasive Line Start (06/17/22 06:56) Cbc With Automated Diff (06/17/22 06:56) Basic Metabolic Panel (06/17/22 06:56) Troponin I Boyd (06/17/22 06:56) Magnesium (06/17/22 06:56) Chest 1 View, Ap/Pa Only (06/17/22 06:56) Adenosine Injection (Adenocard Injection (06/17/22 07:00) Thyroid Stimulating Hormone (06/17/22 07:00) Ekg Tracing (06/17/22 07:06) Medications Given in ED Current Medications Medications Dose Ordered Sig/[place] Route Start Time Stop Time Status Last Admin Dose Admin Adenosine 6 mg STK-MED ONCE IV 06/17/22 06:50 06/17/22 06:53 DC 06/17/22 06:53 6 MG Vital Signs/I&O 06/17/22 06/17/22 06:44 06:44 Pulse 181 Resp 22 B/P (MAP) 105/97 (100) Pulse Ox 99 O2 Delivery Room Air Room Air Blood Pressure Mean: 100 Progress Progress Note : Time: 07:53 Progress Note Patient seen and evaluated by me, 62-year-old male who presented with SVT. Evaluation today includes physical exam, EKG x2, chest x-ray, CBC, chemistry with magnesium, troponin and TSH. Since chemical cardioversion with adenosine the patient has remained pain-free with no complaints of chest pain, shortness of breath, nausea or any discomfort. His vital signs of been stable with a h eart rate in the 70s to 80s, blood pressure 120s to 130s systolic. Not hypoxic. He remains awake alert oriented without complaints. CBC is reviewed and normal, chemistry normal, magnesium normal, troponin undetectable and TSH within normal limits. His initial EKG revealed SVT and a rate of the 170s, after cardioversion second EKG obtained which showed normal sinus rhythm with PACs and a single PVC. No evidence of ST segment elevation or depression. His chest x- ray also was unremarkable. I reviewed SVT with the patient, advised him that it might be a good idea to follow-up with Dr. Lopez and consider cardiology consultation as an outpatient. He has no clinical or objective findings that warrant admission today. I reminded him to be compliant with his medications. Advised return precautions. He has no exam findings concerning for any acute lung pathology such as pneumonia, pneumothorax, no suggestions for pulmonary embolism, no concern for dissection. Again he remains in normal sinus rhythm without any complaints whatsoever and stable vital signs. All questions are sought and answered. Patient is stable for discharge Initial ECG Impression Date: Jun 17, 2022 Initial ECG Impression Time: 06:50 Initial ECG Rate: 177 Initial ECG Rhythm: SVT Initial ECG Impression: Nonspecific Changes Comment PVC's noted EKG : EKG Time: 06:53 Rate: 76 Rhythm: Normal Sinus Intervals: Normal Intervals OH 177 QRS 97 QTc 369 ECG Comparisson: Changed ECG Impression: Normal Comment PVC, PAC; NSSTTW change inferiorly; No ST elevation or depressions Diagnostic Imaging Diagonstic Imaging: Xray Plain Films/CT/US/NM/MRI: chest Comments [facility]. [place], [place] NAME: BRITTNI KELSEY [facility] REC#: [id number] PT STATUS: REG ER : 1960 PHYSICIAN: QUAN RIVERS MD ADMIT DATE: 06/17/22/ER Draft Date of Exam:06/17/22 CHEST 1 VIEW, AP/PA ONLY INDICATION: Chest pain, palpitations COMPARISON: 07/11/2021. TECHNIQUE: Single radiograph of the chest dated 06/17/2022. FINDINGS: The cardiac silhouette is at upper limits of normal in size. No significant pulmonary vascular congestion. The lungs are clear of focal pulmonary opacity. No significant pleural effusion. No pneumothorax. No acute osseous abnormality. IMPRESSION: No acute cardiopulmonary abnormality. Dictated on workstation # [id number] Dict: 06/17/22 0741 Trans: 06/17/22 0744 [facility] [id number] Interpreted by: MENA WHEAT MD Electronically signed by: Departure Impression Primary Impression: SVT (supraventricular tachycardia) Disposition: 01 HOME, SELF-CARE Condition: Improved Departure-Patient Inst. Decision time for Depature: 07:56 Referrals: DELICIA LOPEZ MD (PCP/Family) Primary Care Physician FRANCOIS ANGELES MD FACP FAC CCDS Patient Instructions: Supraventricular Tachycardia (SVT) Add. Discharge Instructions: Drink fluids to stay well-hydrated. Continue taking your daily medications as prescribed by Dr. Lopez. Please call on Sunday for a follow-up appointment with Dr. Lopez. I have also put contact information for the rubber thread spooler on-call, Dr. Angeles. Cardiology consultation as an outpatient would be a good idea. Return to the emergency room if you have any return of chest pain especially with shortness of breath, sweating, nausea or for any other emergent, concerning symptoms. Copy Copies To 1: DELICIA LOPEZ MD Copies To 2: FRANCOIS ANGELES MD FACP FACC CCDS QUAN RIVERS MD Jun 17, 2022 07:00
[2022-06-17 07:05] LABS: BASOPHILS # (AUTO) 0.1 10^3/uL (0.0-0.1); BASOPHILS % (AUTO) 1 % (0-10); EOSINOPHILS # (AUTO) 0.3 10^3/uL (0.0-0.3); EOSINOPHILS % (AUTO) 3 % (0-10); HEMATOCRIT 41 % (40-54); HEMOGLOBIN 14.2 g/dL (13.3-17.7); LYMPHOCYTES # (AUTO) 3.2 10^3/uL (1.0-4.0); LYMPHOCYTES % (AUTO) 38 % (12-44); MEAN CORPUSCULAR HEMOGLOBIN 31 pg (25-34); MEAN CORPUSCULAR HGB CONC 35 g/dL (32-36); MEAN CORPUSCULAR VOLUME 89 fL (80-99); MEAN PLATELET VOLUME 10.2 fL (9.0-12.2); MONOCYTES # (AUTO) 0.6 10^3/uL (0.0-1.0); MONOCYTES % (AUTO) 7 % (0-12); NEUTROPHILS # (AUTO) 4.3 10^3/uL (1.8-7.8); NEUTROPHILS % (AUTO) 52 % (42-75); PLATELET COUNT 157 10^3/uL (130-400); WHITE BLOOD COUNT 8.4 10^3/uL (4.3-11.0)
[2022-06-17 07:20] LABS: CHLORIDE 108 MMOL/L (98-107); POTASSIUM 3.6 MMOL/L (3.6-5.0); SODIUM 139 MMOL/L (135-145)
[2022-06-17 07:21] LABS: CALCIUM 9.1 MG/DL (8.5-10.1)
[2022-06-17 07:22] LABS: GLUCOSE 137 MG/DL (70-105)
[2022-06-17 07:23] LABS: CARBON DIOXIDE 19 MMOL/L (21-32)
[2022-06-17 07:26] LABS: BUN/CREATININE RATIO 21; CREATININE SERUM 1.07 MG/DL (0.60-1.30); GFR ESTIMATED 77
[2022-06-17 07:28] LABS: MAGNESIUM 2.2 MG/DL (1.6-2.4)
--- NOTE | 2022-06-17 07:45 | Diagnostic Imaging Report ---
INDICATION: Chest pain, palpitations COMPARISON: 07/11/2021. TECHNIQUE: Single radiograph of the chest dated 06/17/2022. FINDINGS: The cardiac silhouette is at upper limits of normal in size. No significant pulmonary vascular congestion. The lungs are clear of focal pulmonary opacity. No significant pleural effusion. No pneumothorax. No acute osseous abnormality. IMPRESSION: No acute cardiopulmonary abnormality. Dictated by: Dictated on workstation # [id number]
[2022-06-17 08:05] VITALS: BP 122/63
== END 2022-06-17 08:05 | disposition home or self-care (01) ==
LOC: EDUNIT# 06:43 → ER 06:44
DX: I47.1 Supraventricular tachycardia (principal); Z85.038 Personal history of other malignant neoplasm of large intestine; Z92.21 Personal history of antineoplastic chemotherapy
CPT/HCPCS: 36415; 71045; 80048; 83735; 84443; 84484; 85025; 93005

== ENCOUNTER 2022-07-24 09:27 | Outpatient (RCR) | payer MEDICARE, MEDICAID ==
[~2022-07-24 09:27] MED LIST changes: -CATHETER FLUSH 10 ML SYR IV PRN; -HOLD METFORMIN - RECEIVED CONTRAST 20 ML VIAL IV SCH; -IOHEXOL 350 MG/ML 100 ML (OMNIPAQUE 350) VIAL IV ONE; -NS 100 ML (IVPB) BAG IV ONE
[2022-07-24 09:52] LABS: HEMOGLOBIN 14.4 g/dL (13.3-17.7); MEAN PLATELET VOLUME 10.3 fL (9.0-12.2)
[2022-07-24 09:54] LABS: BASOPHILS % (AUTO) 1 % (0-10); EOSINOPHILS # (AUTO) 0.2 10^3/uL (0.0-0.3); EOSINOPHILS % (AUTO) 3 % (0-10); HEMATOCRIT 42 % (40-54); LYMPHOCYTES # (AUTO) 1.9 10^3/uL (1.0-4.0); LYMPHOCYTES % (AUTO) 32 % (12-44); MEAN CORPUSCULAR HEMOGLOBIN 31 pg (25-34); MEAN CORPUSCULAR HGB CONC 35 g/dL (32-36); MEAN CORPUSCULAR VOLUME 89 fL (80-99); MONOCYTES # (AUTO) 0.4 10^3/uL (0.0-1.0); MONOCYTES % (AUTO) 7 % (0-12); NEUTROPHILS # (AUTO) 3.3 10^3/uL (1.8-7.8); NEUTROPHILS % (AUTO) 57 % (42-75); PLATELET COUNT 110 10^3/uL (130-400); WHITE BLOOD COUNT 5.8 10^3/uL (4.3-11.0)
[2022-07-24 10:18] LABS: ALBUMIN 3.8 GM/DL (3.2-4.5); BILIRUBIN,TOTAL 0.8 MG/DL (0.1-1.0); CREATININE SERUM 0.97 MG/DL (0.60-1.30); POTASSIUM 3.8 MMOL/L (3.6-5.0); TOTAL PROTEIN 6.6 GM/DL (6.4-8.2)
== END 2022-07-25 | disposition home or self-care (01) ==
LOC: ONC 09:27
PROVIDERS: ATTEND Internal Medicine Hematology & Oncology
DX: C18.9 Malignant neoplasm of colon, unspecified (principal); D69.59 Other secondary thrombocytopenia; D50.0 Iron deficiency anemia secondary to blood loss (chronic); I10 Essential (primary) hypertension; E78.00 Pure hypercholesterolemia, unspecified; Z98.890 Other specified postprocedural states
CPT/HCPCS: 36415; 80053; 82378; 85025

== ENCOUNTER → 2022-07-24 | Outpatient (CLI) | payer MEDICARE, MEDICAID ==
[~2022-07-24] MED LIST changes: +CATHETER FLUSH 10 ML SYR IV PRN; +HOLD METFORMIN - RECEIVED CONTRAST 20 ML VIAL IV SCH; +IOHEXOL 350 MG/ML 100 ML (OMNIPAQUE 350) VIAL IV ONE; +NS 100 ML (IVPB) BAG IV ONE
--- NOTE | 2022-07-24 11:50 | Diagnostic Imaging Report ---
PROCEDURE: CT chest, abdomen, and pelvis with contrast. TECHNIQUE: Multiple contiguous axial images were obtained through the chest, abdomen, and pelvis after the administration of intravenous contrast. Auto Exposure Controls were utilized during the CT exam to meet ALARA standards for radiation dose reduction. INDICATION: Colon cancer of the cecum, history of bowel resection. COMPARISON: Exam is compared with CT abdomen and pelvis 07/11/2021. FINDINGS: CHEST: No lung mass or suspicious pulmonary nodule. There is no axillary, hilar, or mediastinal lymphadenopathy. No pneumonia, edema, or effusion. There is no aneurysm. ABDOMEN AND PELVIS: New multilobulated right mana-abdominal mesenteric mass has developed superiorly and commences just below the level of the pancreatic head anterior to the duodenum and extends caudally below the level of the lower pole of the kidneys. In axial plane, this mass measures 6.4 x 4.2 cm, and its aggregate cephalocaudal height is about 6.7 cm. It is presumptively neoplastic; however, at this time, it is surrounded by bowel loops, and no visible percutaneous window at least in this position is demonstrated. The liver is density is consistent with its mild fatty infiltration. There is no liver mass. No bile duct dilatation. The gallbladder is negative. The intra- and extra-hepatic portal veins are patent. There is a right renal calculus, nonobstructing. The kidneys are otherwise unremarkable. There is a fatty umbilical hernia, noninflamed. Pelvic sidewalls and ilioinguinal lymph nodes appeared unremarkable. There is no ascites. There is no bowel, biliary, or urinary tract obstruction. There is noninflamed diverticulosis. There are no findings of an abscess or hematoma. A few additional mesenteric nodes are present at the midline anterior to the proximal SMA. A small mass measured diameter of 2 cm. A left periaortic retroperitoneal node at the level of the renal mid pole measures 2 cm. That mass may be amenable to percutaneous sampling if needed for tissue diagnosis. No suspicious osseous lesion in the chest, abdomen, or pelvis. IMPRESSION: CHEST: No findings of thoracic metastatic disease. ABDOMEN AND PELVIS: 1. New mesenteric and retroperitoneal masses have developed from the prior and are presumptively metastatic with negative liver, and no obstructive features. 2. No hemorrhage, ascites, or abscess. Dictated by: Dictated on workstation # [id number]
== END ==
LOC: RAD 10:15
PROVIDERS: ATTEND Internal Medicine Hematology & Oncology
DX: C18.0 Malignant neoplasm of cecum (principal)
CPT/HCPCS: 71260; 74177

== ENCOUNTER 2022-07-31 08:38 | Outpatient (RCR) | payer MEDICARE, MEDICAID | END 2022-08-25 | disposition home or self-care (01) | LOC: ONC 08:38 | PROVIDERS: ATTEND Internal Medicine Hematology & Oncology | DX: C18.0 Malignant neoplasm of cecum (principal); C77.2 Secondary and unspecified malignant neoplasm of intra-abdominal lymph nodes; I10 Essential (primary) hypertension; E78.00 Pure hypercholesterolemia, unspecified ==

== ENCOUNTER → 2022-09-18 | Outpatient (CLI) | payer MEDICARE, MEDICAID ==
[~2022-09-18] MED LIST changes: +IOHEXOL 350 MG/ML 100 ML (OMNIPAQUE 350) VIAL IV ONE; +NS 100 ML (IVPB) BAG IV ONE
--- NOTE | 2022-09-18 11:24 | Diagnostic Imaging Report ---
PROCEDURE: CT chest, abdomen, and pelvis with contrast. TECHNIQUE: Multiple contiguous axial images were obtained through the chest, abdomen, and pelvis after the administration of intravenous contrast. Auto Exposure Controls were utilized during the CT exam to meet ALARA standards for radiation dose reduction. INDICATION: Followup colon carcinoma. COMPARISON: Prior CT from 07/24/2022. FINDINGS: CT CHEST: No axillary lymphadenopathy is identified. No mediastinal or hilar lymphadenopathy is detected. No pericardial or pleural fluid is identified. No pulmonary infiltrates, nodules, or masses are detected. CT ABDOMEN AND PELVIS: Diffuse low attenuation throughout the liver is again noted, consistent with hepatic steatosis. No liver mass is identified. The gallbladder is unremarkable. There is no biliary ductal dilatation. The pancreas and spleen are unremarkable. No adrenal mass is identified. The kidneys contain nonobstructing calculi. There is no hydronephrosis. The aorta is nonaneurysmal. The dominant jeanette mass in the right hemiabdomen just below the level of the pancreatic head demonstrates an increase in size, now measuring 7.6 cm AP by 6.4 cm transverse compared with 6.3 x 4.0 cm when measured by a similar technique. The jeanette masses anterior to the aorta appear increased in size. The bowel loops are of normal caliber. There is diverticulosis of the descending and sigmoid colon. There is no ascites. The bladder and prostate are unremarkable. No definite pelvic lymphadenopathy is seen. There is a fat-containing umbilical hernia. Postop changes in the right colon are noted. IMPRESSION: 1. No evidence of thoracic lymphadenopathy or pulmonary metastatic disease. 2. Enlarging jeanette masses in the abdomen, as described, consistent with worsening metastatic disease. No liver mass is identified. 3. Nonobstructing bilateral nephrolithiasis. 4. Uncomplicated diverticulosis. Dictated by: Dictated on workstation # [id number]
== END ==
LOC: RAD 09:07
PROVIDERS: ATTEND Internal Medicine Hematology & Oncology
DX: C18.9 Malignant neoplasm of colon, unspecified (principal); N20.0 Calculus of kidney; K57.90 Diverticulosis of intestine, part unspecified, without perforation or abscess without bleeding
CPT/HCPCS: 71260; 74177

== ENCOUNTER 2022-09-21 08:38 | Outpatient (RCR) | payer MEDICARE, MEDICAID ==
[2022-08-31 11:32] LABS: BASOPHILS % (AUTO) 0 % (0-10); EOSINOPHILS # (AUTO) 0.2 10^3/uL (0.0-0.3); EOSINOPHILS % (AUTO) 4 % (0-10); HEMATOCRIT 42 % (40-54); HEMOGLOBIN 14.7 g/dL (13.3-17.7); LYMPHOCYTES # (AUTO) 1.8 10^3/uL (1.0-4.0); LYMPHOCYTES % (AUTO) 27 % (12-44); MEAN CORPUSCULAR HEMOGLOBIN 31 pg (25-34); MEAN CORPUSCULAR HGB CONC 35 g/dL (32-36); MEAN CORPUSCULAR VOLUME 88 fL (80-99); MEAN PLATELET VOLUME 9.8 fL (9.0-12.2); MONOCYTES # (AUTO) 0.6 10^3/uL (0.0-1.0); MONOCYTES % (AUTO) 8 % (0-12); NEUTROPHILS # (AUTO) 4.1 10^3/uL (1.8-7.8); NEUTROPHILS % (AUTO) 60 % (42-75); PLATELET COUNT 156 10^3/uL (130-400); WHITE BLOOD COUNT 6.8 10^3/uL (4.3-11.0)
[2022-08-31 11:52] LABS: ALBUMIN 3.8 GM/DL (3.2-4.5); BILIRUBIN,TOTAL 0.8 MG/DL (0.1-1.0); CALCIUM 9.4 MG/DL (8.5-10.1); CREATININE SERUM 0.88 MG/DL (0.60-1.30); POTASSIUM 3.5 MMOL/L (3.6-5.0); TOTAL PROTEIN 7.1 GM/DL (6.4-8.2)
[~2022-09-21 08:38] MED LIST changes: -IOHEXOL 350 MG/ML 100 ML (OMNIPAQUE 350) VIAL IV ONE; -NS 100 ML (IVPB) BAG IV ONE
[2022-09-21 09:25] LABS: HEMATOCRIT 44 % (40-54); MONOCYTES # (AUTO) 0.7 10^3/uL (0.0-1.0)
[2022-09-21 09:27] LABS: BASOPHILS # (AUTO) 0.1 10^3/uL (0.0-0.1); BASOPHILS % (AUTO) 1 % (0-10); EOSINOPHILS # (AUTO) 0.4 10^3/uL (0.0-0.3); EOSINOPHILS % (AUTO) 4 % (0-10); LYMPHOCYTES % (AUTO) 25 % (12-44); MEAN CORPUSCULAR HEMOGLOBIN 31 pg (25-34); MEAN CORPUSCULAR HGB CONC 34 g/dL (32-36); MEAN CORPUSCULAR VOLUME 89 fL (80-99); MEAN PLATELET VOLUME 10.6 fL (9.0-12.2); MONOCYTES % (AUTO) 8 % (0-12); NEUTROPHILS # (AUTO) 4.9 10^3/uL (1.8-7.8); NEUTROPHILS % (AUTO) 61 % (42-75); PLATELET COUNT 185 10^3/uL (130-400); WHITE BLOOD COUNT 8.1 10^3/uL (4.3-11.0)
[2022-09-21 09:45] LABS: BILIRUBIN,TOTAL 0.7 MG/DL (0.1-1.0); CREATININE SERUM 1.11 MG/DL (0.60-1.30); POTASSIUM 3.2 MMOL/L (3.6-5.0); TOTAL PROTEIN 7.3 GM/DL (6.4-8.2)
== END 2022-09-24 | disposition home or self-care (01) ==
LOC: ONC 08:38
PROVIDERS: ATTEND Internal Medicine Hematology & Oncology
DX: C18.0 Malignant neoplasm of cecum (principal); C77.2 Secondary and unspecified malignant neoplasm of intra-abdominal lymph nodes; I10 Essential (primary) hypertension; E78.00 Pure hypercholesterolemia, unspecified; E66.01 Morbid (severe) obesity due to excess calories; Z98.890 Other specified postprocedural states
CPT/HCPCS: 36415; 80053; 85025

== ENCOUNTER 2022-10-11 05:39 | Outpatient (CLI) | payer MEDICARE, MEDICAID ==
[~2022-10-11] VITALS: Ht 170 cm; Wt 123.2 kg
[2022-10-12] MEDS ORDERED: CAPE500T14 PO (10:12)
== END 2022-10-12 10:13 ==
LOC: PREOP 05:39
PROVIDERS: ATTEND Surgery
DX: Z01.818 Encounter for other preprocedural examination (principal); C18.9 Malignant neoplasm of colon, unspecified; I87.2 Venous insufficiency (chronic) (peripheral)

== ENCOUNTER 2022-10-17 09:26 | Day surgery (SDC) | payer MEDICARE, MEDICAID ==
[~2022-10-17] VITALS: Ht 170.1 cm; Wt 123.2 kg
[~2022-10-17 09:26] MED LIST changes: +CAPE500T14 PO
[2022-10-17] MEDS ORDERED: 0.9% SODIUM CHLORIDE PF INJ 20 ML VIAL ONE (10:17)
[2022-10-17] MEDS ORDERED: BUP/EPI 0.5% 1:200,000 (SENSORCAINE) 30 ML VIAL ONE (10:17)
[2022-10-17] MEDS ORDERED: HEParin (CENTRAL IV FLUSH) 500 UNIT/5 ML SYR ONE (10:17)
[2022-10-17 10:27] VITALS: BP 132/74
[2022-10-17] MEDS ORDERED: LACTATED RINGERS 1,000 ML IV PRN (10:30)
[2022-10-17] MEDS ORDERED: PROPOFOL INJECTION 50 ML IV ONE (10:42)
[2022-10-17] MEDS ORDERED: MIDAZOLAM 2 MG/2 ML (VERSED) VIAL ONE (10:42)
--- NOTE | 2022-10-17 11:06 | Progress Note-Pre Operative ---
Pre-Operative Progress Note Date of Available H&P: October 03, 2022 Date H&P Reviewed: October 17, 2022 Time H&P Reviewed: 11:01 History & Physical: H&P Reviewed, Patient Examed, No changes noted Pre-Operative Diagnosis: Venous insufficiency, Rectal bleed, Anemia PROSPER GUZMAN DO October 17, 2022 11:06
[2022-10-17] MEDS ORDERED: ceFAZolin INJECTION 2,000 MG ONE (11:09)
--- NOTE | 2022-10-17 11:42 | Progress Note-Post Operative ---
Post-Operative Progess Note Surgeon (s)/Fine Arts Teacher (s) Surgeon PROSPER GUZMAN DO Fine Arts Teacher: NONE Pre-Operative Diagnosis Venous insufficiency, Rectal bleed, Anemia Post-Operative Diagnosis Same Procedure & Operative Findings Date of Procedure 10/17/22 Procedure Performed/Findings PROCEDURE: Darrell-Cath Placement The patient was taken to the operating suite, was prepped and draped in the sterile fashion. A surgical pause was performed. Local anesthetic was infiltrated at the clavicle and along the tract to the right anterior chest, where more local was placed so the pocket could be created. Using an 18 gauge finder needle with negative inspiration the right subclavian vein was accessed on the first attempt and dark nonpulsatile blood was withdrawn. The wire was inserted and fluoroscopy assured proper placement. The needle was removed and the wire was then secured. A #11 blade scalpel was used to make an incision over the right chest and along guidewire. Cautery was used to dissect down to the pectoral fascia. A pocket was created with blunt dissection. The dilator sheath was then advanced over the wire under fluoroscopy and the dilator and wire were removed. The Groshong catheter was inserted through the sheath and the sheath was then removed. The Groshong wire was removed. The catheter was then tunneled to the right chest pocket. Fluoroscopy was used to cut to length and this was then attached to the port which was then placed within the pocket. The port was then accessed without difficulty. It was then flushed with saline and then heparin. The subcutaneous tissues were then reapproximated using 3-0 Vicryl. Finally the skin was closed with 4-0 undyed monocryl, 3 interrupted sutures. The areas were then washed and dried. Skin Affix was placed over incision. The insertion point of the neck Skin Affix was placed over the incision. The patient tolerated the procedure well without complication and was taken to recovery room in stable condition. Anesthesia Type IV sedation by Anesthesia Estimated Blood Loss Estimated blood loss (mL): scant Specimens/Packing Specimens Removed none PROSPER GUZMAN DO October 17, 2022 11:42
--- NOTE | 2022-10-17 11:43 | Discharge Inst-Surgical ---
Discharge Inst-Surgical Depart Medication/Instructions New, Converted or Re-Newed RX: Other (Use home meds) Patient Instructions Follow up Appt: Make appointment for 1 week. [phone] Instructions: No lifting greater than 20 pounds. No strenuous activity. May shower in 24 hours, no tub bath or soaking. Use incentive spirometer at home as directed. No Smoking Skin/Wound Care: May remove bandages in am. You need to leave the Dermabond on incision it will fall off on it's own. Symptoms to Report: Appetite Changes, Extremity Discoloration, Numbness/Tingling, Swelling Increased, Bleeding Excessive, Eyesight Changes, Pain Increased, Urine Color Change, Constipation(Persistent), Fever over 101 degree F, Pain/Pressure in chest, Urinating Difficulty, Cough Up/Vomit Blood, Heart Beat Irreg/Pounding, Pain/Pressure in jaw, Cramps in feet or legs, Lightheadedness, Pain/Pressure in shoulder, Diarrhea(Persistent), Memory Changes Suddenly, Questions/Concerns, Weight gain consecutive days, Dizziness/Fainting, Nausea/Vomiting, Shortness of Breath, Weight gain over 2 pounds If questions or concerns contact your physician Or seek help at emergency department. Activity Activity as Tolerated: Yes Activity Instructions: Avoid Stress to Incision Driving Instructions: No Driving/Refer to Dr. Hanks Discharge Diet: No Restrictions Diet After 24 Hours: Clear Liquid if Nauseous If Any Problems/Questions/Issu: Contact Your Physician, Go to Emergency Room Skin/Wound Care Infection Signs and Symptoms: Increased Redness, Foul Odor of Wound, Increased Drainage, Skin Itchy or Has a Rash, Increased Swelling, Temperature Above 101 F Bathing Instructions: Shower Stitches/Divina/Dermabond Dis: PROSPER Torres DO October 17, 2022 11:43
[2022-10-17 11:44] VITALS: BP 122/58
[2022-10-17 11:50] VITALS: BP 131/61
--- NOTE | 2022-10-17 11:58 | Anesthesia-General Post-Op ---
MAC Patient Condition Mental Status/LOC: Same as Preop Cardiovascular: Satisfactory Nausea/Vomiting: Absent Respiratory: Satisfactory Pain: Controlled Complications: Absent Post Op Complications Complications None Follow Up Care/Instructions Patient Instructions None needed. Anesthesiology Discharge Order Discharge Order Patient is awake in PACU and doing well, no complaints, stable vital signs, no apparent adverse anesthesia problems. No complications reported per nursing. PUSHPA KIRK DO October 17, 2022 11:58
[2022-10-17 12:00] VITALS: BP 127/65
[2022-10-17] MEDS ORDERED: ONDANSETRON 4 MG/2 ML (SDV) Z0FRAN IVP PRN (12:00)
[2022-10-17] MEDS ORDERED: morphine INJ 10 MG/ML 1ML (SYR OR VIAL) IVP ONE (12:00)
[2022-10-17 12:05] VITALS: BP_SYST 127; BP_SYST 130; BP_DIAS 65; BP_DIAS 68
--- NOTE | 2022-10-17 13:38 | Diagnostic Imaging Report ---
INDICATION: Port-A-Cath placement. Intraoperative fluoroscopy used during Port-A-Cath placement in surgery. Single view obtained, 4.6 seconds of fluoroscopy time was used. FINDINGS: Intraoperative view demonstrates Port-A-Cath in place from left subclavian vein approach, tip is not included on this image. IMPRESSION: Intraoperative views obtained during Port-A-Cath placement as above. Dictated by: Dictated on workstation # [id number]
== END 2022-10-17 12:52 | disposition home or self-care (01) ==
LOC: SDC 09:26
PROVIDERS: ATTEND Surgery
DX: I87.2 Venous insufficiency (chronic) (peripheral) (principal); C18.0 Malignant neoplasm of cecum; K62.5 Hemorrhage of anus and rectum; D64.9 Anemia, unspecified; E66.9 Obesity, unspecified; F17.220 Nicotine dependence, chewing tobacco, uncomplicated; Z68.41 Body mass index [BMI] 40.0-44.9, adult
CPT/HCPCS: 36569; 76000; 87081; C1788

== ENCOUNTER 2022-10-19 10:13 | Outpatient (RCR) | payer MEDICARE, MEDICAID ==
[~2022-10-19] VITALS: Ht 170.1 cm; Wt 127.1 kg
[~2022-10-19 10:13] MED LIST changes: +BEVACIZUMAB BVZR IV SCH; +D5W 500 ML IV SOLUTION 500 ML IV SCH; +D5W IV SCH; +FAMOTIDINE 20MG/2ML IV (PEPCID) IV PRN; +FOSAPREPITANT (CANCER CENTER) 150 MG in NS (IVPB) CANCER CENTER ONLY 150 ML IV SCH; +HEParin (CENTRAL IV FLUSH) 500 UNIT/5 ML SYR IV PRN; +NS IV SCH; +OXALIPLATIN IV SCH; +PALONOSETRON HCL 0.25 MG, dexAMETHasone INJECTION 10 MG in NS (IVPB) 50 ML IV SCH
[2022-10-19 10:44] LABS: BASOPHILS % (AUTO) 1 % (0-10); EOSINOPHILS # (AUTO) 0.2 10^3/uL (0.0-0.3); EOSINOPHILS % (AUTO) 2 % (0-10); HEMATOCRIT 35 % (40-54); LYMPHOCYTES # (AUTO) 2.2 10^3/uL (1.0-4.0); LYMPHOCYTES % (AUTO) 25 % (12-44); MEAN CORPUSCULAR HEMOGLOBIN 31 pg (25-34); MEAN CORPUSCULAR HGB CONC 35 g/dL (32-36); MEAN CORPUSCULAR VOLUME 89 fL (80-99); MEAN PLATELET VOLUME 9.5 fL (9.0-12.2); MONOCYTES # (AUTO) 0.7 10^3/uL (0.0-1.0); MONOCYTES % (AUTO) 9 % (0-12); NEUTROPHILS # (AUTO) 5.5 10^3/uL (1.8-7.8); NEUTROPHILS % (AUTO) 63 % (42-75); PLATELET COUNT 199 10^3/uL (130-400); WHITE BLOOD COUNT 8.7 10^3/uL (4.3-11.0)
[2022-10-19 10:45] VITALS: BP 120/73
[2022-10-19 11:05] LABS: ALBUMIN 3.2 GM/DL (3.2-4.5); BILIRUBIN,TOTAL 0.5 MG/DL (0.1-1.0); CALCIUM 8.8 MG/DL (8.5-10.1); CREATININE SERUM 0.99 MG/DL (0.60-1.30); POTASSIUM 3.5 MMOL/L (3.6-5.0); TOTAL PROTEIN 6.4 GM/DL (6.4-8.2)
== END 2022-10-25 | disposition still patient (30) ==
LOC: ONC 10:13
PROVIDERS: ATTEND Internal Medicine Hematology & Oncology
DX: Z51.11 Encounter for antineoplastic chemotherapy (principal); Z45.2 Encounter for adjustment and management of vascular access device; C18.0 Malignant neoplasm of cecum; C77.2 Secondary and unspecified malignant neoplasm of intra-abdominal lymph nodes; I10 Essential (primary) hypertension; E78.00 Pure hypercholesterolemia, unspecified; E66.01 Morbid (severe) obesity due to excess calories; Z98.890 Other specified postprocedural states
CPT/HCPCS: 36591; 80053; 85025; 96360; 96367; 96375; 96413; 96415

== ENCOUNTER 2022-11-23 08:21 | Outpatient (RCR) | payer MEDICARE, MEDICAID ==
[2022-10-26 08:44] LABS: BASOPHILS % (AUTO) 0 % (0-10); EOSINOPHILS # (AUTO) 0.4 10^3/uL (0.0-0.3); EOSINOPHILS % (AUTO) 3 % (0-10); HEMATOCRIT 39 % (40-54); HEMOGLOBIN 13.3 g/dL (13.3-17.7); LYMPHOCYTES # (AUTO) 3.3 10^3/uL (1.0-4.0); LYMPHOCYTES % (AUTO) 31 % (12-44); MEAN CORPUSCULAR HEMOGLOBIN 30 pg (25-34); MEAN CORPUSCULAR HGB CONC 34 g/dL (32-36); MEAN CORPUSCULAR VOLUME 88 fL (80-99); MEAN PLATELET VOLUME 9.8 fL (9.0-12.2); MONOCYTES # (AUTO) 1.1 10^3/uL (0.0-1.0); MONOCYTES % (AUTO) 10 % (0-12); NEUTROPHILS % (AUTO) 55 % (42-75); PLATELET COUNT 248 10^3/uL (130-400); WHITE BLOOD COUNT 10.9 10^3/uL (4.3-11.0)
[2022-10-26 09:06] LABS: ALBUMIN 3.5 GM/DL (3.2-4.5); BILIRUBIN,TOTAL 0.6 MG/DL (0.1-1.0); CALCIUM 9.1 MG/DL (8.5-10.1); CREATININE SERUM 1.12 MG/DL (0.60-1.30); POTASSIUM 3.6 MMOL/L (3.6-5.0); TOTAL PROTEIN 6.9 GM/DL (6.4-8.2)
[2022-11-02 09:00] LABS: BASOPHILS % (AUTO) 0 % (0-10); EOSINOPHILS # (AUTO) 0.3 10^3/uL (0.0-0.3); EOSINOPHILS % (AUTO) 4 % (0-10); HEMATOCRIT 32 % (40-54); HEMOGLOBIN 11.6 g/dL (13.3-17.7); LYMPHOCYTES # (AUTO) 2.2 10^3/uL (1.0-4.0); LYMPHOCYTES % (AUTO) 27 % (12-44); MEAN CORPUSCULAR HEMOGLOBIN 31 pg (25-34); MEAN CORPUSCULAR HGB CONC 36 g/dL (32-36); MEAN CORPUSCULAR VOLUME 88 fL (80-99); MEAN PLATELET VOLUME 9.8 fL (9.0-12.2); MONOCYTES # (AUTO) 0.7 10^3/uL (0.0-1.0); MONOCYTES % (AUTO) 9 % (0-12); NEUTROPHILS # (AUTO) 4.8 10^3/uL (1.8-7.8); NEUTROPHILS % (AUTO) 60 % (42-75); PLATELET COUNT 206 10^3/uL (130-400)
[2022-11-02 09:24] LABS: ALBUMIN 3.3 GM/DL (3.2-4.5); BILIRUBIN,TOTAL 0.7 MG/DL (0.1-1.0); CALCIUM 9.2 MG/DL (8.5-10.1); CREATININE SERUM 0.88 MG/DL (0.60-1.30); POTASSIUM 3.4 MMOL/L (3.6-5.0); TOTAL PROTEIN 6.4 GM/DL (6.4-8.2)
[2022-11-09 09:44] LABS: BASOPHILS % (AUTO) 1 % (0-10); EOSINOPHILS # (AUTO) 0.2 10^3/uL (0.0-0.3); EOSINOPHILS % (AUTO) 3 % (0-10); HEMATOCRIT 29 % (40-54); HEMOGLOBIN 10.1 g/dL (13.3-17.7); LYMPHOCYTES # (AUTO) 1.6 10^3/uL (1.0-4.0); LYMPHOCYTES % (AUTO) 32 % (12-44); MEAN CORPUSCULAR HEMOGLOBIN 33 pg (25-34); MEAN CORPUSCULAR HGB CONC 34 g/dL (32-36); MEAN CORPUSCULAR VOLUME 95 fL (80-99); MEAN PLATELET VOLUME 9.8 fL (9.0-12.2); MONOCYTES # (AUTO) 0.6 10^3/uL (0.0-1.0); MONOCYTES % (AUTO) 11 % (0-12); NEUTROPHILS # (AUTO) 2.6 10^3/uL (1.8-7.8); NEUTROPHILS % (AUTO) 52 % (42-75); PLATELET COUNT 154 10^3/uL (130-400)
[2022-11-09 10:04] LABS: ALBUMIN 3.1 GM/DL (3.2-4.5); BILIRUBIN,TOTAL 0.6 MG/DL (0.1-1.0); CALCIUM 8.7 MG/DL (8.5-10.1); CREATININE SERUM 0.86 MG/DL (0.60-1.30); TOTAL PROTEIN 5.7 GM/DL (6.4-8.2)
[2022-11-09 10:15] VITALS: BP 126/82
[2022-11-17 08:57] LABS: BASOPHILS % (AUTO) 1 % (0-10); EOSINOPHILS # (AUTO) 0.2 10^3/uL (0.0-0.3); EOSINOPHILS % (AUTO) 4 % (0-10); HEMATOCRIT 29 % (40-54); LYMPHOCYTES # (AUTO) 1.8 10^3/uL (1.0-4.0); LYMPHOCYTES % (AUTO) 30 % (12-44); MEAN CORPUSCULAR HEMOGLOBIN 33 pg (25-34); MEAN CORPUSCULAR HGB CONC 34 g/dL (32-36); MEAN CORPUSCULAR VOLUME 96 fL (80-99); MEAN PLATELET VOLUME 11.1 fL (9.0-12.2); MONOCYTES # (AUTO) 0.7 10^3/uL (0.0-1.0); MONOCYTES % (AUTO) 12 % (0-12); NEUTROPHILS # (AUTO) 3.2 10^3/uL (1.8-7.8); NEUTROPHILS % (AUTO) 53 % (42-75); PLATELET COUNT 91 10^3/uL (130-400); WHITE BLOOD COUNT 5.9 10^3/uL (4.3-11.0)
[2022-11-17 09:28] LABS: ALBUMIN 3.2 GM/DL (3.2-4.5); BILIRUBIN,TOTAL 0.8 MG/DL (0.1-1.0); CALCIUM 9.1 MG/DL (8.5-10.1); CREATININE SERUM 1.01 MG/DL (0.60-1.30); POTASSIUM 4.5 MMOL/L (3.6-5.0); TOTAL PROTEIN 6.3 GM/DL (6.4-8.2)
[~2022-11-23] VITALS: Ht 170.2 cm; Wt 125.2 kg
[~2022-11-23 08:21] MED LIST changes: +NS IV 500 ML 500 ML IV SCH
[2022-11-23 08:49] LABS: BASOPHILS % (AUTO) 0 % (0-10); EOSINOPHILS # (AUTO) 0.1 10^3/uL (0.0-0.3); EOSINOPHILS % (AUTO) 2 % (0-10); HEMATOCRIT 27 % (40-54); HEMOGLOBIN 8.9 g/dL (13.3-17.7); LYMPHOCYTES # (AUTO) 1.3 10^3/uL (1.0-4.0); LYMPHOCYTES % (AUTO) 28 % (12-44); MEAN CORPUSCULAR HEMOGLOBIN 32 pg (25-34); MEAN CORPUSCULAR HGB CONC 33 g/dL (32-36); MEAN CORPUSCULAR VOLUME 96 fL (80-99); MEAN PLATELET VOLUME 10.5 fL (9.0-12.2); MONOCYTES # (AUTO) 0.7 10^3/uL (0.0-1.0); MONOCYTES % (AUTO) 15 % (0-12); NEUTROPHILS # (AUTO) 2.5 10^3/uL (1.8-7.8); NEUTROPHILS % (AUTO) 54 % (42-75); PLATELET COUNT 155 10^3/uL (130-400); WHITE BLOOD COUNT 4.7 10^3/uL (4.3-11.0)
[2022-11-23 08:54] LABS: ALBUMIN 2.8 GM/DL (3.2-4.5); POTASSIUM 3.5 MMOL/L (3.6-5.0)
[2022-11-23 08:55] LABS: CALCIUM 8.4 MG/DL (8.5-10.1)
[2022-11-23 08:56] LABS: TOTAL PROTEIN 6.3 GM/DL (6.4-8.2)
[2022-11-23 08:58] LABS: BILIRUBIN,TOTAL 0.6 MG/DL (0.1-1.0)
[2022-11-23 09:00] LABS: CREATININE SERUM 0.85 MG/DL (0.60-1.30)
== END 2022-11-24 | disposition home or self-care (01) ==
LOC: ONC 08:21
PROVIDERS: ATTEND Internal Medicine Hematology & Oncology
DX: Z51.11 Encounter for antineoplastic chemotherapy (principal); Z45.2 Encounter for adjustment and management of vascular access device; C18.0 Malignant neoplasm of cecum; C77.2 Secondary and unspecified malignant neoplasm of intra-abdominal lymph nodes; I10 Essential (primary) hypertension; E78.00 Pure hypercholesterolemia, unspecified; E66.01 Morbid (severe) obesity due to excess calories; Z98.890 Other specified postprocedural states
CPT/HCPCS: 36415; 36591; 80053; 85025; 96367; 96375; 96413; 96415; 96417

== ENCOUNTER 2022-11-30 08:36 | Outpatient (RCR) | payer MEDICARE, MEDICAID ==
[2022-11-09 10:15] VITALS: BP 126/82
[~2022-11-30 08:36] MED LIST changes: -FAMOTIDINE 20MG/2ML IV (PEPCID) IV PRN; +FAMOTIDINE INJ 20MG/2ML VIAL IV PRN; +PALONOSETRON HCL 0.25 MG, dexAMETHasone INJECTION 10 MG in NS (IVPB) 50 ML 50 ML IV SCH; -PALONOSETRON HCL 0.25 MG, dexAMETHasone INJECTION 10 MG in NS (IVPB) 50 ML IV SCH
== END 2022-12-25 | disposition home or self-care (01) ==
LOC: ONC 08:36
PROVIDERS: ATTEND Internal Medicine Hematology & Oncology
DX: Z45.2 Encounter for adjustment and management of vascular access device (principal); C18.0 Malignant neoplasm of cecum; C77.2 Secondary and unspecified malignant neoplasm of intra-abdominal lymph nodes; I10 Essential (primary) hypertension; E78.00 Pure hypercholesterolemia, unspecified; E66.01 Morbid (severe) obesity due to excess calories; Z98.890 Other specified postprocedural states